=== PATIENT | male | born 1940 | race Caucasian/White ===

== ENCOUNTER 2019-03-25 07:49 | Inpatient (IN) | payer MEDICARE ==
[~2019-03-25] VITALS: Ht 175.3 cm; Wt 89.0 kg
[~2019-03-25 07:49] MED LIST: ASPIRIN EC81 MG PO; BACTRIM DS TAB1 EACH PO; PRAVACHOL40 MG PO; PREDNISONE10 MG PO; TUMS ULTRA400 MG PO; TYLENOL EXTRA500 MG PO; VANICREAM453 GM TOP
--- NOTE | 2019-03-25 11:45 | NUR ---
CALLED UTILITY LOCATOR TO VERIFY GASTROGRAFIN IS THE ORAL CONTRAST NEEDED FOR THE CT THAT HAS BEEN ORDERED BY . CONFIRMED BY UTILITY LOCATOR TO PLEASE GIVE ONE DOSE OF GASTROGRAFIN ORALLY AND THEN CALL BACK.
--- NOTE | 2019-03-25 12:00 | NUR ---
PATIENT ARRIVED FROM ED VIA STRETCHER. PATIENTS DAUGHTER AT BEDSIDE AWAITING WORK REALEASE NOTE FROM DR HILL. ASKED SOME QUESTIONS FROM DAUGHTER AND PATIENT. PATIENT ANSWERED YES TO SOME QUESTIONS THAT WERE NOT TRUE. PATIENTS DAUGHTER DOES NOT KNOW WHAT MEDICATIONS PATIENT IS ON OR IF HE HAS ANY ALLERGIES.
--- NOTE | 2019-03-25 12:15 | NUR ---
ON ADMIT PATIENT NOTED TO HAVE SOILED UNDERWEAR AND CHANGED IN THE ED. PATIENT NOTED TO HAVE VERY DRIED ON FECES UP AND DOWN HIS LEGS AND ALL OVER HIS FEET THAT DOES NOT WIPE OFF. PATIENT IS FORGETFUL AND CONFUSED. PATIENT DOES NOT FOLLOW COMANDS WELL. PATIENTS DAUGHTER STATES "I TRY TO CHECK IN ON HIM ONCE A DAY, HE LIVES IN THE APPARTMENT RIGHT NEXT DOOR AND I TRY TO BRING HIM BREAKFAST". 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 PER PATIENTS DAUGHTER, PATIENT SITS AT HOME IN JUST HIS UNDERWEAR IN HIS CHAIR ALL DAY AND DOES NOT AMBULATE BUT A COUPLE FEET TO DEFECATE IN A "BUCKET", WHICH HAS BEEN GOING ON FOR APPROX A MONTH OR TWO. PATIENT HAS A DOG THAT WAS FOUND TO BE EATING PATIENTS DRESSINGS FROM HIS CHEST WOUND THE PAST FEW WEEKS. PATIENT ATTEMPTS TO COOK AT TIMES AND FORGETS AND LEAVES THE STOVE ON OR WILL SET PLASTIC NEAR THE STOVE. ED STAFF REPORTED THEY WERE TOLD THE APPARTMENT HAS "MICE/RATS". PER REPORT PATIENT HASN'T SHOWERED IN AT LEAST 3-5 MONTHS. PATIENT HAD ANOTHER FALL APPROX 1-2 MONTHS AGO AND HAS TALKED ABOUT COMMITING SUICIDE. WHEN I ASKED PATIENT QUESTIONS IN [facility] TO THOUGHTS OF SUICIDE, PATIENT DENIES. WHEN ASKED IF PATIENT IS CONCERENED ABOUT HIS SAFETY AT HOME, PATIENT DENIED. CONTACTED [facility] AND TALKED WITH JONELLE. STAFF WILL FOLLOW-UP.
--- NOTE | 2019-03-25 12:21 | NUR ---
CALLED [facility] TO UPDATE ABOUT PATIENTS SITUATION D/T PATIENTS PRESENTATION UPON ARRIVAL TO THE CCU. PT IS COVERED IN FECES. PER DAUGHTER PATIENT IS UNABLE TO REALLY COOK/CARE FOR HIMSELF. DAUGHTER MAURICIO STATES "I TRY TO CHECK ON HIM EVERY DAY, BUT I HAVE MY OWN LIFE AND JOB, I CANT BE THERE ALL THE TIME". DAUGHTER STATES " HE USES A BUCKET TO DEFICATE BECAUSE HE CANT HARDLY WALK". HE HAS A RIGHT CHEST WOUND, STATES "ITS CANCER" AND WANTS NO TREATMENT FOR IT. JONELLE WITH [facility] STATES, WE WILL LOOK INTO IT FURTHER.
--- NOTE | 2019-03-25 14:00 | NUR ---
PATIENT HAD TWO LARGE BOWEL MOVEMENTS. ALL BEDDING CHANGED TWICE. WARM BLABKET PROVIDED. PICTURES TAKEN FOR CHART OF PATIENTS WOUNDS AND BILATERAL FEET. PATIENT DENIES ANY OTHER NEEDS AT THIS TIME. PATIENT DRANK ALL GASTROGRAFIN PER ORDER WITH NO ISSUES. WILL CONTINUE TO CLOSELY MONITOR.
--- NOTE | 2019-03-25 14:21 | NUR ---
PT RESTING I NBED ON HIS SIDE AT THIS TIME. PATIENT ANSWERES QUESTIONS, BUT APPEARS FORGETFUL/CONFUSED. ASKED PATIENT IF HE FEELS SAFE AT HOME AND PATIENT STATED "I HAVE EVERYTHING PAID FOR". PT IS ALERT TO SELF AND PLACE AT THIS TIME, BUT DISORIIETNED TO DATE, TIME, SITUATION, AND FOLLOWING DIRECTIONS. EDUCATED TO USE THE CALL LIGHT TO CALL AND PATIENT NOTED TRYING TO PUSH BUTTONS ON THE IV PUMP TO CALL STAFF. REORIENTED AGAIN AND EDUCATED TRAVEL NURSE LIGHT. WARM BLANKET PROVIDED. WILL CONTINUE TO CLOSELY MONITOR.
--- NOTE | 2019-03-25 15:15 | EKG ---
[facility] [address] [place], [place] [address] Signed Sinus rhythm with 1st degree AV block Low voltage QRS Nonspecific intraventricular conduction delay ST \T\ T wave abnormality, consider inferolateral ischemia Abnormal ECG No previous ECGs available Confirmed by CHIKIS HILL DO ([id number]) on 03/25/2019 3:15:29 PM Electronically Signed By: CHIKIS HILL DO 03/25/19 1515 PATIENT NAME: ARLIN RIOS Electrocardiogram DATE OF : 38 PHYSICIAN: CHIKIS HILL DO REPORT #: [id number] REPORT IS CONFIDENTIAL AND NOT TO BE RELEASED WITHOUT AUTHORIZATION
--- NOTE | 2019-03-25 15:42 | NUR ---
PATIENT BACK FROM CT WITH THIS RN. PT TOLERATED WELL. PATIENT DOES NOT FOLLOW DIRECTIONS WELL. PT REMOVED IV PRIOR TO CT SCAN. THIS RN PLACED NEW IV. PATIENT IS NOW RESTING IN BED AT THIS TIME. WILL CONTINUE TO CLOSELY MONITOR.
--- NOTE | 2019-03-25 16:57 | NUR ---
UPDATED MD HILL ABOUT INCREASED RR IN THE 30'S AT TIMES AND NOTED COARSNESS WITH BREATH SOUNDS. PATIENT ALSO NOTED TO HAVE SOME PUSS AT THE TIP OF HIS PENIS. NO FURTHER ISSUES AT THIS TIME. IVS SALINE LOCKED. WILL MONITOR OUTPUT. PT RESTING AT THIS TIME.
--- NOTE | 2019-03-25 18:31 | NUR ---
PATIENT HAD A LIQUID BM. ALL BEDDING CHANGED AND NEW GOWN IN PLACE. GAVE A QUICK BED BATH AND HAVE PATIENTS FEET SOAKING IN SHAVING CREAM TO HELP REMOVED OLD/DRIED ON FECES. ASSISTED PATIENT TO SIT UP AND EAT A CLEAR LIQUID TRAY. PATIENT HAD 2 BITS OF JELLO AND A DRINK OF APPLE JUICE AND DENIED THE REST OF HIS MEAL. MEDICATIONS ADMINISTERED WITH NO ISSUES. WILL CONTINUE TO CLOSELY MONITOR.
--- NOTE | 2019-03-25 19:40 | NUR ---
PATIENT REPORT RECEIVED FROM CCU RN. PT RESTING IN STRETCHER AT THIS TIME. DR GOLDSTEIN IN TO CHECK ON PATIENT. UPDATED ON PT CONDITION. ASSESSMENT COMPLETED DENIES DISCOMFORT OR PAIN. AUDIBLE COARSE LUNGS SOUNDS. RESIPRATORY EFFORT INCREASES WITH TALKING OR MOVEMENT.PM CARE, SKIN CARE, AND PRINCE CARE COMPLETED AT THIS TIME. CALL LIGHT WITHIN REACH. NO FURTHER NEEDS AT THIS TIME. BED ALARM ON FOR SAFETY.
--- NOTE | 2019-03-25 20:13 | NUR ---
PTS DAUGHTER IN TO VISIT AT THIS TIME.
--- NOTE | 2019-03-25 21:35 | NUR ---
PT BLOOD PRESSURES TRENDING DOWN. LAST PRESSURE 86/42 (54). URINE OUTPUT STILL MEETS CRITERIA. DR HILL NOTIFIED, ORDER RECIEVED FOR 1 L BOLUS OF LR AT 200 MLS/ HR.
--- NOTE | 2019-03-25 22:21 | NUR ---
DRESSING ON RIGHT CHEST SATURATED THROUGH DRESSING. CHANGED AT THIS TIME. PT CONTINUE APPEARS MORE DISORIENTED. VISIBLE FROM NURSES STATION. BED ALARM ON FOR PATIENT SAFETY.
--- NOTE | 2019-03-25 23:30 | NUR ---
FLUIDS STOPPED AT THIS TIME. PT RECIEVED A TOTAL OF 500 MLS.
--- NOTE | 2019-03-25 23:35 | NUR ---
PT HEART RATE UP TO 110. REQUIRING FREQUENT REORIENTATION TO TIME AND LOCATION. PT LUNGS ARE COARSE THROUGHOUT. OXYGEN SATURATIONS 93 PERCENT ON ROOM AIR.
--- NOTE | 2019-03-26 00:25 | NUR ---
DR HILL UPDATED ON PATIENT CONDITION.
--- NOTE | 2019-03-26 01:25 | NUR ---
RESPONDED TO PATIENT CALL LIGHT. PT HAD A BOWEL MOVEMENT, ALEXANDER CARE PERFORMED. REPOSITIONED IN BED. PT RESPONDS APPROPRIATELY TO QUESTIONS. APPEARS MORE ORIENTED TO SITUATION AND LOCATION. CALL LIGHT WITHIN REACH. BED ALARM ON FOR PATIENT SAFETY. NO FURTHER NEEDS AT THIS TIME.
--- NOTE | 2019-03-26 03:08 | NUR ---
ASSISTED PT WITH REPOSITIONING IN STRETCHER. NO FURTHER NEEDS AT THIS TIME.
--- NOTE | 2019-03-26 04:00 | NUR ---
IN TO COMPLETE ASSESSMENT. REPOSITIONED PATIENT IN THE BED, PT DRANK 6 0Z OF WATER AT THIS TIME. PT IS ORIENTED TO SELF AND LOCATION AT THIS TIME. LUNG SOUNDS HAVE IMPROVED THROUGHOUT. PT IS SATURATING 97 PERCENT ON ROOM AIR. CALL LIGHT WITHIN REACH. NO FURTHER REQUESTS.
--- NOTE | 2019-03-26 04:39 | NUR ---
PT HAD BOWEL MOVEMENT. ALEXANDER CARE AND LINEN CHANGE COMPLETED AT THIS TIME.
--- NOTE | 2019-03-26 06:15 | NUR ---
IN TO CHECK ON PATIENT, AWAKE IN BED AT THIS TIME. DENIES PAIN. ASSISTED WITH REPOSITIONING. CALL LIGHT WITHIN REACH.
--- NOTE | 2019-03-26 07:30 | NUR ---
PATIENT SHIFT REPORT RECIEVED FROM ENGRAVER SIGNATURE RN. PATIENT IS RESTING IN BED AT THIS TIME. PATIENT DENIES ANY NEEDS. CALL LIGHT IN REACH. CURTAIN OPEN TO ALLOW STAFF TO CLOSELY MONITOR.
--- NOTE | 2019-03-26 08:30 | NUR ---
PATIENT SHIFT ASSESSMENT COMPELTED. PATIENT RESTING IN BED. BREAKFAST ORDERED. PATIENT IS MORE ALERT TODAY AND IS ALERT TO NAME, PLACE, AND MONTH. PATIENT KNOWS HE IS IN THE HOSPITAL FOR A FALL, BUT DOES NOT REMEMBER FALLING. PRINCE REMAINS IN PLACE AND IS DRAINGING AMBERISH COLORED URINE. PATIENT DENIES PAIN, SOB, BREATH SOUNDS ARE A LITTLE COARSE AT TIMES BUT IMPROVES WITH COUGHING. OFFERED TO TURN THE TV ON, PATIENT DENIED. CURTAINS OPENED AND PATIENT WATCHING OUTSIDE. WILL CONTINUE TO CLOSELY MONITOR.
--- NOTE | 2019-03-26 09:55 | NUR ---
OT STAFF AND CASE MANAGEMENT IN TO TALK WITH STAFF THIS AM. PATIENT ANSWERING QUESTIONS. PATIENT SITTING UP IN BED AND EATING BREAKFAST ON HIS OWN WITH NO ISSUES. WILL CONTINUE TO CLOSELY MONITOR.
--- NOTE | 2019-03-26 11:05 | NUR ---
PATIENT HAD LOOSE BM. ALL BEDDING CHANGED AND QUICK BEDBATH GIVEN. WILL DO WASH CLOTH AND SOAP AND WATER BATH LATER. PHYSICAL THERAPY IN TO WORK WITH PATIENT. WILL CONTINUE TO CLOSELY MONITOR.
--- NOTE | 2019-03-26 11:45 | NUR ---
PATIENT WOUND REDRESSED WITH A FOAM ADHESIVE DRESSING. PATIENT STATES THERE IS NO PAIN AT THE SITE. NEW GOWN PLACE. LUNCH ORDERED. CALL LIGHT IN REACH.
--- NOTE | 2019-03-26 12:15 | NUR ---
THE PATIENT IS HOME BOUND AND HIS DAUGHTER IS THE ONE WHO WOULD BE PICKING UP AND DELIVERING HIS MEDICATIONS TO HIM. SHE HAS NOT DONE SO IN QUITE SOME TIME. PATIENT IS NOT ON ANY CURRENT MEDICATIONS AT THIS TIME.
--- NOTE | 2019-03-26 12:54 | NUR ---
PT IS DOING MUCH BETTER THIS AFTERNOON. PT IS ALERT TO MONTH, SELF, AND PLACE. PATIENT APPETITE HAS INCREASED AND IS ABLE TO FEED HIMSELF. PATIENT ASSESSMENT COMPLETED AND PATIENT DENIES PAIN AND SOB. VITALS ARE STABLE. PATIENT IS STARTING TO JOKE WITH STAFF MORE. MEDICATIONS ADMINISTERED PER ORDERS. MD IN TO SPEAK WITH PATIENT. PATIENT IS AGREEABLE TO THE POTENTIAL OF REHAB/ASSISTIVE LIVING FACILITY. PATIENT DENIES ANY OTHER NEEDS AT THIS TIME. WILL CONTINUE TO CLOSELY MONITOR.
--- NOTE | 2019-03-26 15:30 | NUR ---
PT IS DOING MUCH BETTER THIS AFTERNOON. PT VITAL SIGNS STABLE. PATINET IS MORE ALERT THE DAY CONTINUES. UPDATED MD OF PATIENTS CONDITION AND SOME NOTED FORGETFULLNESS, BUT OVERALL PATIENT IS IMPROVING. PRINCE IS NOTED TO HAVE AMBERISH COLORED URINE BUT HAS BEEN QUANTITY SUFFICIENT. PATIENT DENIES PAIN AND SOB. BED BATH COMPLETED. PATIENT TOLERATED WELL. PATIENTS DAUGHTER AT BEDSIDE AND UPDATED ON PLAN OF CARE. PATIENT ENCOURAGED TO DRINK ORAL FLUIDS. WILL CONTINUE TO CLOSELY MONITOR.
--- NOTE | 2019-03-26 16:54 | NUR ---
1630: PT ARRIVED TO MED SURG FROM CCU. REPORT RECEIVED FROM DEE ACOSTA. PT DENIES ANY PAIN OR PROBLEMS. PT NOT ORIENTED TO PERSON, PLACE OR TIME, BED ALARM TURNED ON. VSS AND PT APPEARS IN NO DISTRESS AT THIS TIME, SEE ASSESSMENT.
--- NOTE | 2019-03-26 17:37 | NUR ---
PATIENT RESTING IN BED. VITAL SIGNS AND I&O DONE. WATER GIVEN. CALL LIGHT WITHIN REACH. NO OTHER NEEDS AT THIS TIME
--- NOTE | 2019-03-26 18:15 | NUR ---
1844: Pt repositioned in bed. Manfred states he is comfortable and denies any needs.
--- NOTE | 2019-03-26 19:00 | NUR ---
IN ROOM FOR REPORT, PT IS RESTING WITH EYES CLOSED. RR IS EVEN AND NONLABORED HR LOW 100'S AT THIS TIME. CALL LIGHT IS CLOSE AND BED ALARM IS ON.
--- NOTE | 2019-03-26 21:10 | NUR ---
REPOSITIONED PT IN BED AFER HE USED THE BEDPAN. BM IS RUNNY AND YELLOW. PT DENIES PAIN AND SOB. HE IS NOT ORIENTED TO DATE/TIME. HE USED THE CALL LIGHT APPROPRIATELY TO USE THE BEDPAN. HE IS ON TELE #10 AND RUNNING A LITTLE TACHY IN THE LOW 100'S TO 105. DRESSING ON RIGHT CHEST HAS A SMALL AMOUNT OF SHADOWING BUT IS INTACT. PT DENIES NEEDS AT THIS TIME. CALL LIGHT IS CLOSE AND BED ALARM IS ON.
--- NOTE | 2019-03-26 21:12 | NUR ---
VITALS AND I&OS DONE AND CHARTED. WITH THE HELP OF KARLA RUCKER WE GOT HIM ON AND OFF THE BEDPAN. BEDSIDE TABLE AND CALL LIGHT IN REACH. FRESH ICE WATER GIVEN. PT NEEDS NOTHING MORE AT THIS TIME.
--- NOTE | 2019-03-26 21:39 | NUR ---
PT'S TELE LEADS CAME OFF, REPLACED, AND HE DENIES FURTHER NEEDS. CALL LIGHT IS WITHIN REACH.
--- NOTE | 2019-03-26 22:35 | NUR ---
PT IS RESTING WITH EYES CLOSED, RR IS EVEN AND NONLABORED. IV ABX ARE INFUSING WELL. CALL LIGHT IS CLOSE AND BED ALARM IS ON.
--- NOTE | 2019-03-26 23:46 | NUR ---
PT CALLED ASKING HOW TO TURN THE TV ON. ASSISTED HIM TO TURN IT ON AND REPOSTITIONED HIM IN THE BED. HE DENIES FURTHER NEEDS. CALL LIGHT IS CLOSE AND BED ALARM IS ON.
--- NOTE | 2019-03-27 00:01 | NUR ---
CCU CALLED BECAUSE PT'S HR JUMPED TO THE 130'S. THIS WAS SHORTLY AFTER PT WAS RESTLESS IN BED AND STATED HE COULD NOT SLEEP. BP WAS TAKEN AND IT WAS WNL. HR REMAINS IN LOW 100'S AND IS NOT SUSTAINED ABOVE 130. WILL CONTINUE TO MONITOR.
--- NOTE | 2019-03-27 00:52 | NUR ---
PT IS RESTING WITH EYES CLOSED, RR IS EVEN AND NONLABORED. HR IS 84. CALL LIGHT IS CLOSE AN BED ALARM IS ON.
--- NOTE | 2019-03-27 01:35 | NUR ---
PT'S BED ALARM SOUNDED HE ROLLED TO THE SIDE. HE DENIES NEEDS AT THIS TIME. CALL LIGHT IS CLOSE AND BED ALARM IS BACK ON.
--- NOTE | 2019-03-27 02:03 | NUR ---
ALLYVN DRESSING TO RIGHT CHEST HAD SOME PURULENT/SEROUS DRAINAGE THAT SOAKED THROUGH TO GOWN. NEW ALLYVN IN PLACE AND PT DENIES PAIN AT THIS TIME. HE IS RESTLESS AND STATES HE IS HAVING TROUBLE SLEEPING. PT IS ABLE TO ROLL HIMSLEF TO A COMFORTABLE POSITION, HE FAVORS SLEEPING ON HIS RIGHT SIDE. PRINCE IS DRAINING WELL. IV ABX ARE COMPLETE AT THIS TIME. PT DENIES NEEDS AND CALL LIGHT IS CLOSE. BED ALARM IS ON.
--- NOTE | 2019-03-27 04:30 | NUR ---
PT IS RESTING WITH EYES CLOSED, RESPIRATIONS ARE EVEN AND NONLABORED. HR IS 99 ON TELE. CALL LIGHT IS CLOSE AND BED ALARM IS ON.
--- NOTE | 2019-03-27 05:00 | NUR ---
PT SLEPT ON/OFF THROUGH THE NIGHT. HE DENIES PAIN. HE NEEDS HELP REPOSITIONING AT TIMES BUT IS ABLE TO ROLL AND SHIFT HIS OWN WEIGHT. IV IS SL BETWEEN CEFEPIME INFUSIONS. HE IS ON TELE #10 AND HR IS IRREGULAR RANGING FROM 70'S TO 130'S MAINLY STAYING AROUND 100. HE IS ON RA AND HAS A PRINCE CATH IN PLACE. HE IS ON A 2G SODIUM DIET AND ABLE TO FEED HIMSELF. HE IS CONFUSED AND THE BED ALARM IS ON. FRESH ALLEVYN DRESSING IS ON RT CHEST COVERING FUNGATING MASS. PT DOES NOT WALK MUCH AT BASELINE AND MAYBE A 2PA WITH RAEGAN.
--- NOTE | 2019-03-27 05:45 | NUR ---
IN ROOM TO ADMINISTER IV ABX. ASSISTED PT TO REPOSITION IN BED. HE IS ASKING WHEN HE CAN GET OUT OF BED. WE ASKED THAT HE WAIT UNTIL P.T. CAN ASSIST HIM TO SEE HOW WELL HE CAN AMBULATE. PT DENIES FURTHER NEEDS AT THIS TIME. CALL LIGHT IS WITHIN REACH.
--- NOTE | 2019-03-27 07:37 | NUR ---
PT SLEEPING SOUNDLY AT SHIFT CHANGE REPORT RECEIVED FROM COLE RN. PT APPEARS COMFORTABLE BREATHNG EVEN AND UNLABORED NO S/S OF DISCOMFOT. BED ALARM IS SET, FOELY DRAINING CLEAR YELLOW URINE.
--- NOTE | 2019-03-27 08:25 | NUR ---
PT AWAKENED FOR ASSESSMENT AND MORNING MEAL. AUDIBLE EX WHEEZE PT DENIES SOB. EATS BITES ONLY, REFUSES OFFER OF OTHER FOOD ITEMS. H20 FRESHENED AND AT BED SIDE. BED ALARM IS SET. PT ALERT AND COOPERATIVE DENIES DISCOMFORTS OR NEEDS OF. CALL LIGHT IN HAND AGREES TO CALL FOR NEEDS
--- NOTE | 2019-03-27 08:31 | NUR ---
DR HILL NOTIFIED PT HAS AUDIBLE EX WZ, RESP 28, BREATHING LABORED.
--- NOTE | 2019-03-27 09:04 | NUR ---
SATS 88% ON FINGER MOINITOR IN ROOM, RETESTED USING PULSE OX SATS AT 95%. DR HILL IN TO CHECK ON PT, ORDERS RECEIVED. SURESH SCHNEIDER'D WELL TOLERATED
--- NOTE | 2019-03-27 10:12 | NUR ---
PT UP WITH P/T TO AMBULATE. BM SMEAR ON UNDERGARMENT AND BED, ASSISTED TO DO ALEXANDER CARE, LINEN CHANGE, AND UNDERGARMENT PUT IN PLACE. PT APPEARS FAIRLY STRONG GETTING UP AND AMBULATING, WELL TOLERATED.
--- NOTE | 2019-03-27 10:23 | NUR ---
PT AMBULATES 84 FT RETURNS TO CHAIR SATS 95% WELL TOLERATED. NO LONGER WHEEZING AT THIS TIME RESP RATE 24.
--- NOTE | 2019-03-27 11:04 | NUR ---
PT SITTING UP IN RECLINER, ASKS IF HE NEEDS TO CALL BEFORE GETTING UP. PT ENCOURAGED TO CALL FOR SBA FOR NOW, CALL LIGHT IN REACH ALONG WITH H20 AND OTHER ITEMS.
--- NOTE | 2019-03-27 13:31 | NUR ---
PT USES CALL LIGHT APPROPRIATELY REPORTS NEED TO TOILET. ABLE TO VOID WITHOUT DIFFICULTY (AFTER PRINCE REMOVAL) HAS A SMALL BM. PT RETURNS TO RESTING IN BED, FROM CHAIR. REFUSES LUNCH PREFERS TO NAP, AGREES TO MEAL LATER
--- NOTE | 2019-03-27 15:35 | NUR ---
PT TO CHAIR AGAIN, DAUGHTER IS PRESENT IN THE ROOM AT THIS TIME. PT DENIES PAIN, DISCOMFORT, OR NEEDS OF. CALL LIGHT IN REACH
--- NOTE | 2019-03-27 18:19 | NUR ---
PT HAS CONTINUED TO USE HIS CALL LIGHT APPROPRIATELY THIS SHIFT CALLING TO TOILET AND TO MOVE FROM CHAIR TO BED. AMBULATES TO THE BATHROOM WITH GREAT EFFORT. UP TO THE CHAIR FOR THE EVENING MEAL EATS 100% RETURNS TO RESTING IN BED. TELE DC'D PER DR BROWNLEE
--- NOTE | 2019-03-27 19:00 | NUR ---
IN ROOM FOR REPORT, PT IS RESTING WITH EYES CLOSED. RR IS EVEN AND NONLABORED. CALL LIGHT IS WITHIN REACH.
--- NOTE | 2019-03-27 22:16 | NUR ---
ON ROOM TO ASSESS PT AND ADMINISTER MEDICATION. PT DENIES PAIN AND SOB AT THIS TIME. HE IS TRYING TO SLEEP AND GIVING MINIMAL ANSWERS TO QUESTIONS. DRESSING IN PLACE ON R CHEST. IV FLUSHES WELL AND IV ABX ARE NOW INFUSING. PT DENIES NEEDS AT THIS TIME. CALL LIGHT IS CLOSE.
--- NOTE | 2019-03-27 22:58 | NUR ---
HELPED PT TO THE BATHROOM AND BACK TO BED WITH HIS FWW. BEDSIDE TABLE AND CALL LIGHT IN REACH. PT NEEDS NOTHING AT THIS TIME.
--- NOTE | 2019-03-28 00:16 | NUR ---
PT IS RESTING WITH EYES CLOSED, RESPIRATIONS ARE EVEN AND NONLABORED. CALL LIGHT IS WITHIN REACH.
--- NOTE | 2019-03-28 02:00 | NUR ---
PT IS RESTING WITH EYES CLOSED, RESPIRATIONS ARE EVEN AND NONLABORED. CALL LIGHT IS WITHIN REACH.
--- NOTE | 2019-03-28 04:10 | NUR ---
PT WAS ASSISTED TO THE RESTROOM AND TO THE CHAIR BY ELLIOTT KING. HIS CHEST DRESSING WAS LEAKING OUT OF THE BOTTOM PURULENT DRAINAGE. ABD PAD TAPED OVER WOUND TO CONTAIN DRAINAGE. PT DENIES PAIN AT THIS TIME AND FURTHER NEEDS. CALL LIGHT IS WITHIN REACH.
--- NOTE | 2019-03-28 05:40 | NUR ---
NEW IV STARTED. PT DENIES NEEDS AT THIS TIME. IV ABX INFUSING. CALL LIGHT IS CLOSE.
--- NOTE | 2019-03-28 06:32 | NUR ---
PT IS ON A 2G SODIUM DIET. HE HAS A NEW IV IN HIS RIGHT WRIST WHICH IS SL BETWEEN CEFEPIME INFUSIONS. HE IS 1PA WITH FWW. HE HAS A FUNGATING MASS ON HIS RIGHT CHEST COVERED WITH ABD PAD. CASE MANAGEMENT IS WORKING ON PLACEMENT.
--- NOTE | 2019-03-28 07:05 | NUR ---
RECIEVED BEDSIDE REPORT FROM KARLA RUCKER. PT SITTING UP IN RECLINER. PERSONAL SUPPLIES IN REACH.
--- NOTE | 2019-03-28 10:28 | NUR ---
PT TOOK SHOWER WITH THIS RN ASSISTANCE. PT DECLINED LINNEN CHANGE AT THIS TIME, WENT TO BED DIRECTLY AFTER SHOWER. DRESSING TO RIGHT CHEST WOUND CHANGED DUE TO OLD DRESSING GETTING WET IN SHOWER. MINIMAL BLOODY DRAINAGE NOTED. ALLYVEN DRESSING PLACED.
--- NOTE | 2019-03-28 10:55 | NUR ---
REPORT RECEIVED FROM KARLA SAMANO. THIS RN ASSUMING CARE OF PT. PT RESTING IN BED. BED RAILS UP. CALL LIGHT WITHIN REACH.
--- NOTE | 2019-03-28 11:17 | NUR ---
THIS RN TO BEDSIDE FOR ROUNDS WITH MD. PT AWAKENS TO VOICE AND TOUCH. ASSESSMENT DONE. LUNG SOUNDS CLEAR. BOWEL TONES NOTED. PT DENIES PAIN AND NAUSEA. PT DRIFTS BACK TO SLEEP. NO ADDITIONAL REQUESTS OR COMPLAINTS AT THIS TIME. CALL LIGHT WITHIN REACH. CURTAIN OPEN FOR EASY VIEWING FROM NURSES STATION.
--- NOTE | 2019-03-28 12:23 | NUR ---
PT INCONTINENT OF URINE. PT AMBULATED TO BATHROOM WITH FWW WITH STANDBY ASSIST. THIS RN ASSISTED PT IN CHANGING INTO FRESH ATTENDS. PT THEN TO RECLINER IN ROOM TO EAT LUNCH. BED LINNENS CHANGED.
--- NOTE | 2019-03-28 14:14 | NUR ---
THIS RN TO ROOM TO CHECK ON PT. PT RESTING ON RIGHT SIDE. PT AWAKENS TO VOICE. MEDICATION GIVEN (SEE MAR). PT DENIES PAIN AND NAUSEA. PT IRRITABLE STATING "WHY DO I WANT PAIN WHEN I HAVE YOU IN HERE ALL THE TIME." PT STATES HE WANTS TO GO BACK TO SLEEP. BED RAILS UP. CALL LIGHT WITHIN REACH.
--- NOTE | 2019-03-28 15:22 | NUR ---
SBA, FWW UP TO RESTROOM. PT VOIDS 200ML WITHOUT ISSUE. SBA, FWW BACK TO BED. PT SOB WITH AMBULATION BACK TO BED. PT TRANSFERS SELF INTO BED WITH MODERATE DIFFICULTY. PT VERY SLOW WITH AMBULATION BUT ABLE TO AMBULATE. PT RESTING ON RIGHT SIDE. WATER REFILLED. NO REQUESTS OR COMPLAINTS AT THIS TIME.
--- NOTE | 2019-03-28 17:35 | NUR ---
DINNER ARRIVED. THIS RN TO ROOM. PT DECLINES DINNER. PT ENCOURAGED TO GET UP TO CHAIR OR EDGE OF BED, PT DECLINES. VITALS TAKEN. PT CONTINUES RESTING ON LEFT SIDE. NO REQUESTS OR COMPLAINS. CALL LIGHT WITHIN REACH. BED RAILS UP.
--- NOTE | 2019-03-28 17:38 | NUR ---
PTS DAUGHTER, MAURICIO, ARRIVED FOR VISIT. MAURICIO UPDATED ON PLAN OF CARE AND PT CONDITION. MAURICIO VERBALIZES UNDERSTANDING AND STATES HER QUESTIONS HAVE BEEN ANSWERED.
--- NOTE | 2019-03-28 17:42 | NUR ---
PT HERE FOR SEPSIS. 1PA WITH FWW THIS SHIFT. PT ABLE TO AMBULATE SLOWLY TO BATHROOM AND CHAIR. PT TOLEARTING 2G SODIUM DIET WITH MINIMAL APPITITE. NO BOWEL MOVEMENT THIS SHIFT, SENNA STARTED, GIVEN X1 THIS SHIFT. DRESSIN TO RIGHT CHEST WOUND CHANGED THIS SHIFT PER MD, COMPLEX WOUND ASSESSMENT DONE. NECROTIC TISSUE, AND HARD EDGES NOTED ON [id number] WOUND. PT UP FOR SHOUER TODAY AND UP X2 TO CHAIR. PT RELUCTANT TO PARTICIPATE IN ACTIVIEIS OR GET UP TO CHAIR, DECLINED DINNER. PT/OT IN VOLVED. PTS DAUGHTER AT BEDSIDE IN EVENING. ANTICIPATING CASE MANAGEMENT CONSULT AND PLACEMENT DISCUSSION TOMORROW. PT USES CALL LIGHT INCONSISTANTLY.
--- NOTE | 2019-03-28 17:45 | NUR ---
PT HERE FOR SEPSIS. 1PA WITH FWW THIS SHIFT. PT ABLE TO AMBULATE SLOWLY TO BATHROOM AND CHAIR. PT TOLEARTING 2G SODIUM DIET WITH MINIMAL APPITITE. NO BOWEL MOVEMENT THIS SHIFT, SENNA STARTED, GIVEN X1 THIS SHIFT. DRESSIN TO RIGHT CHEST WOUND CHANGED THIS SHIFT PER MD, COMPLEX WOUND ASSESSMENT DONE. NECROTIC TISSUE, AND HARD EDGES NOTED ON [id number] WOUND. PT UP FOR SHOUER TODAY AND UP X2 TO CHAIR. PT RELUCTANT TO PARTICIPATE IN ACTIVIEIS OR GET UP TO CHAIR, DECLINED DINNER. PT/OT IN VOLVED. PTS DAUGHTER AT BEDSIDE IN EVENING. ANTICIPATING CASE MANAGEMENT CONSULT AND PLACEMENT DISCUSSION TOMORROW. PT USES CALL LIGHT INCONSISTANTLY.
--- NOTE | 2019-03-28 17:55 | NUR ---
NEW DINNER ORDER PLACED PER PTS DAUGHTER'S REQUEST. PTS DAUGHTER STATES PT WOULD LIKE COTTAGE CHEESE AND CHICKEN NOODLE SOUP. DIETARY CALLED AND PORTIONS WORKED OUT TO STAY WITHIN 2G SODIUM RESTRICION.
--- NOTE | 2019-03-28 18:13 | NUR ---
NEW DINNER ARRIVED. PT ENCOURAGED TO GET UP FOR DINNER. PT DECLINES. PTS DAUGHTER STATES "I ATE HIS DINNER BECAUSE HE WASN'T GOING TO EAT IT." PT RESTING ON LEFT SIDE. PT DENIES REQUESTS OR COMPLAINTS AT THIS TIME. BED RAILS UP. CALL LIGHT WITHIN REACH.
--- NOTE | 2019-03-28 19:10 | NUR ---
RECEIVED REPORT FROM DAY SHIFT RN. PATIENT IS RESTING IN BED WITH EYES CLOSED, RR 17. CALL LIGHT IN REACH.
--- NOTE | 2019-03-28 21:16 | NUR ---
PATIENT ASSESEMENT COMPLETED. PATIENTS ATTEND AND BEDDING SOAKED. BEDDING CHANGED AND ATTEND CHANGED. ALEXANDER CARE COMPLETED. DESITIN APPLIET TO PATIENTS COCYX AREA. PATIENT WAS ABLE TO ASSIST STAFF TO ROLL FROM SIDE TO SIDE SO THAT HE COULD BED CHANGED. PATIENT DENIES ANY PAIN. PATIENTS EVENING MEDICATIONS GIVEN PER ORDER. ALLEVYN ON RIGHT UPPER CHEST CHANGED IT WAS SOAKED WITH DRAINAGE. PATIENTS GOWN ALSO CHANGED. PATIENTS INTAKE AND OUTPUT RECORDED. NO NEEDS NOTED. CALL LIGHT IN REACH. BED ALARM ON FOR SAFETY.
--- NOTE | 2019-03-28 23:31 | NUR ---
PATIENT REPOSITIONED IN BED. PATIENT DENIES ANY FURTHER NEEDS. CALL LIGHT IN REACH AND ALARM IS ON FOR SAFETY.
--- NOTE | 2019-03-29 00:25 | NUR ---
PATIENT IS RESTING IN BED WQITH EYES CLOSED, RR 17. CALL LIGHT IN REACH AND BED ALARM ON FOR SAFETY.
--- NOTE | 2019-03-29 01:25 | NUR ---
PATIENT IS RESTING IN BED WITH EYES CLOSED, RR 17. CALL LIGHT IN REACH AND BED ALARM ON FOR SAFETY.
--- NOTE | 2019-03-29 02:40 | NUR ---
KARLA Downey and myself went to check on patient, he had wet the bed. A complete bed change was done along with new briefs. PT requested a fresh cup of ice water and did not need anything further at this time.
--- NOTE | 2019-03-29 02:45 | NUR ---
PATIENTS ATTEND AND BEDDING IS SOAKED WITH URINE. PATIENTS BEDDING AND ATTEND CHANGED. ALEXANDER CARE COMPLETED. PATIENTS ALLEVYN ON RIGHT UPPER CHEST IS COMING OFF AND DRAINGE NOTED. ALLEVYN CHANGED. PATIENT PROVIDED WITH FRESH ICE WATER. NO FURTHER NEEDS NOTED. CALL LIGHT IN REACH AND BED ALARM ON FOR SAFETY.
--- NOTE | 2019-03-29 04:10 | NUR ---
PATIENT IS RESTING IN BED WITH EYES CLOSED, RR 16. CALL LIGHT IN REACH.
--- NOTE | 2019-03-29 04:40 | NUR ---
PATIENT RESTED WELL THROUGHOUT THE SHIFT. PATIENT IS ON A 2GM NA LIMIT DIET, TOLERATING WELL, AND NO NAUSEA NOTED. PATIENT IS A 1PA W/FWW. PATIENT IS WORKING WITH PT/OT. PATIENT IS SL AND IV FLUSHES WELL. PATEITN IS ON RA. PATIENT HAS WOUND ON RIGH THONG CHEST AND IT IS COVERED WITH AN ALEVYN AND THE ALYVN IS CHANGED PRN. PATIENT GETS SOB W/ACTIVITY. PATIENT IS FORGETFUL AT TIMES, REORIENT NEEDED. PATIENT USES CALL LIGHT APPROPRIATELY.
--- NOTE | 2019-03-29 05:56 | NUR ---
PATIENTS VITLAS TAKEN AND RECORDED. PATIENTS ATTEND CHANGED PATIENT WAS INCONTINENT OF URINE. ALEXANDER CARE COMPLETED. PATIENT REPOSITIONED IN BED. PATIENT DENIES ANY PAIN OR SOB. PATIENT PROVIDED WITH COFFEE PER REQUEST. PATIENT DENIES ANY FURTHER NEEDS. CALL LIGHT IN REACH AND BED ALARM ON FOR SAFETY.
--- NOTE | 2019-03-29 05:58 | NUR ---
VS and I&Os were complete. Patient was changed with the assistance of KARLA Downey and myself. Patient requested coffee and water. Nothing further was needed at this time.
--- NOTE | 2019-03-29 07:22 | NUR ---
Pt sleeping in bed at this time, resp even and non labored. Pt has no s/s of distress noted. Personal supplies and call light within reach.
[2019-03-29] MEDS ORDERED: TYLENOL325 MG PO (08:51)
[2019-03-29] MEDS ORDERED: SULFAMETHOXAZO1 EAC1 PO (08:51)
[2019-03-29] MEDS ORDERED: SENNA-TIME S T1 EACH PO (08:52)
[2019-03-29] MEDS ORDERED: DESITIN57 GM TOP (08:54)
--- NOTE | 2019-03-29 09:47 | NUR ---
PATIENT IN BED RESTING. CALL LIGHT IN REACH. NO FURTHER NEEDS AT THIS TIME. PATIENT REFUSED SHOWER AT THIS TIME, WILL ASK AGAIN LATER.
--- NOTE | 2019-03-29 10:06 | NUR ---
CALLED AND SPOKE WITH SANGITA AT [facility], FAXED CHART NOTES TO [facility] INCLUDING FACE SHEET, ER NOTES AND SUMMARY, H AND P, PROG NOTES, PT AND OT EVAL AND NOTES. RECEIVED FAX CONFIRMATION.
--- NOTE | 2019-03-29 10:10 | NUR ---
ATTEMPTED TO CALL PTS DAUGHTER MAURICIO @ [phone], NO ANSWER SO I LEFT A MESSAGE FOR HER TO CALL ME BACK AT [phone].
--- NOTE | 2019-03-29 11:00 | NUR ---
TRIED TO MAKE APPT. FOR [facility] AND HIS OFFICE SAID THAT THEY WILL SET IT UP WITH [facility] HE IS [facility] PROVIDER.
--- NOTE | 2019-03-29 11:34 | NUR ---
PT DAUGHTER CALLED BACK AND SHE SAID [facility] THERE. WE DID TALK ABOUT THEM APPLYING FOR ASSISTANCE FOR CAREGIVERS THROUGH [employer]-BROUGHT UP BY MAURICIO (DAUGHTER). SHE SAID SOON THEY BRING UP THINGS ABOUT [facility] OR [employer] SHE HANGS UP JUAN THEY GOT NO BUSINESS KNOWING THAT STUFF THEY DON'T NEED TO KNOW THAT. I TRIED TO EXPLAIN [facility] NEEDS AND MAURICIO STATED SHE UNDERSTOOD A LITTLE AND WILL TRY AGAIN WITH THEM JUAN SHE STATES HE NEEDS HELP.
--- NOTE | 2019-03-29 12:25 | NUR ---
Pt resting in bed at this time, resp even and non labored. Pt denies needs at this time. Personal supplies and call light within reach. No needs at this time.
--- NOTE | 2019-03-29 13:57 | NUR ---
PATIENT IN BED RESTING WITH EYES CLOSED. ALEXANDER CARE DONE. NEW ATTENDS. CALL LIGHT IN REACH. NO FURTHER NEEDS AT THIS TIME.
--- NOTE | 2019-03-29 15:03 | NUR ---
REPORT RECIEVED FROM KARLA BELTRE. THIS RN ASSUMING CARE OF PT. PT RESTING IN BED ON LEFT SIDE. BED RAILS UP. CALL LIGHT WITHIN REACH.
--- NOTE | 2019-03-29 15:22 | NUR ---
REPORT CALLED TO KARLA WELLER AT [facility] WHO STATES HER QUESTIONS HAVE BEEN ANSWERED.
--- NOTE | 2019-03-29 15:40 | NUR ---
PT READY FOR DISCHRAGE TO [facility] ON THEIR WAY. 1PA, FWW UP TO RESTROOM. SMALL BM NOTED. ALEXANDER CARE DONE. FRESH DEPENDS IN PLACE. SCRUB PANTS IN PLACE. PT DOES NOT WANT A SHIRT, PT REMAINS IN GOWN FOR TRANSFER. VITALS TAKEN. PIV DC'D PER PROTOCOL. GAUZE AND COBAN APPLIED. FRESH DRESSING TO CHEST WOUND. OLD DRESSING SHOWS YELLOW AND SERIOUSANGUINOUS DRAINAGE. 1PA, FWW TRANSFER TO WHEELCHAIR. PT UPDATED ON PLAN OF CARE AND TRANSFER. PT VERBALIZES UNDERSTANDING. PT WHEELED FROM UNIT BY GIDEON SHAY AND MIKALA JOHNSON RN. TRANSFER PACKET GIVEN TO DONTE VEE.
== END 2019-03-29 15:40 | DRG 871 ==
LOC: ED 07:49 → CCU 10:51 → MS 03-26 16:32
PROVIDERS: ADMIT Student in an Organized Health Care Education/Training Program
DX: A41.51 Sepsis due to Escherichia coli [E. coli] (principal); K72.00 Acute and subacute hepatic failure without coma; G93.41 Metabolic encephalopathy; N17.9 Acute kidney failure, unspecified; E87.2 Acidosis; R65.20 Severe sepsis without septic shock; C76.1 Malignant neoplasm of thorax; E87.6 Hypokalemia; E78.5 Hyperlipidemia, unspecified; J44.9 Chronic obstructive pulmonary disease, unspecified; I35.0 Nonrheumatic aortic (valve) stenosis; K59.00 Constipation, unspecified; G30.9 Alzheimer's disease, unspecified; F02.80 Dementia in other diseases classified elsewhere, unspecified severity, without behavioral disturbance, psychotic disturbance, mood disturbance, and anxiety; Z66 Do not resuscitate; Z79.82 Long term (current) use of aspirin; Z79.899 Other long term (current) drug therapy; Z88.8 Allergy status to other drugs, medicaments and biological substances
CPT/HCPCS: 36415; 51702; 70450; 71045; 71260; 74177; 80048; 80053; 80076; 81001; 82550; 83605; 83735; 83880; 84100; 84484; 85025; 87040; 87077; 87088; 87186; 93005; 93010; 97110; 97116; 97162; 97165; 97535; 99285-25; J0692; J1650; J3370; J3475; J3480; J7030; J7060; J7120

== ENCOUNTER 2019-09-03 07:55 | Inpatient (IN) | payer MEDICARE ==
[~2019-09-03] VITALS: Ht 175.3 cm; Wt 89.8 kg
[~2019-09-03 07:55] MED LIST changes: +DESITIN57 GM TOP; +SENNA-TIME S T1 EACH PO; +SULFAMETHOXAZO1 EAC1 PO; +TYLENOL325 MG PO
--- NOTE | 2019-09-03 09:31 | NUR ---
BLOOD ADMINISTRATION STARTED, DOUBLE CHECKED WITH NARCISO RN. PATIENT APPEARS TO BE TOLERATING WELL. NO NEEDS AT THIS TIME. NURSE AT BEDSIDE.
--- NOTE | 2019-09-03 11:08 | NUR ---
BLOOD INFUSING, TOLERATING WELL. PATIENT COMPLAINTS OF BACK PAIN. REPOSITIONED PATIENT TO SIDE OF BED SITTING UP. PROVIDED LEMON SWABS. MASSGAGED PATIENT BACK, AND PROVIDED WARM BLANKET. PATIENT REPORTED BACK PAIN IMPROVED.
--- NOTE | 2019-09-03 12:00 | NUR ---
1155 2ND UNIT PRBCS DOUBLE CHECKED WITH 2 RNS. THEN HUNG PER PUMP AT 120MLS/HR. LINE WAS CLEARED WITH SALINE FIRST. PT DENIES ANY S/S OF REACTION. AGAIN ENC TO REPORT ANY S/S OF REACTION. STATES HE UNDERSTANDS.
[2019-09-03] MEDS ORDERED: IBUPROFEN200 MG PO (12:05)
--- NOTE | 2019-09-03 12:14 | NUR ---
DENIES ANY S/S OF REACTION. RATE INCREASED TO 150MLS/HR.
[2019-09-03] MEDS ORDERED: SENNO8.6 MG PO (12:16)
[2019-09-03] MEDS ORDERED: FLUOXETINE HCL20 M1 PO (12:17)
--- NOTE | 2019-09-03 14:00 | NUR ---
PATIENT RESTING BACK IN RECLINER. BRIEF DRY. PROVIDED PATIENT WITH LEMON SWABS. CALL LIGHT WITHIN REACH. LIGHTS DIM.
--- NOTE | 2019-09-03 15:00 | NUR ---
PATIENT TRANSFERED BACK TO BED FROM RECLINER. STARTED SECOND IV LINE TO LEFT WRIST, LR TKO. BLOOD ADMINISTRATION DONE AT 1445, VS STABLE. DR. BARCENAS TO ROOM SITE MARKED. SOPHIE LUNA IN ROOM DISCUSSING POC.
--- NOTE | 2019-09-03 17:08 | NUR ---
BRIEF SATURATED WITH URINE. CHANGED BEDDING. NEW ATTEND ON. PATIENT STOOD STEADY AT EDGE OF BED WITH WALKER. DAUGHTER AT BEDSIDE.
--- NOTE | 2019-09-03 17:49 | NUR ---
TOOK BELONGINGS TO MS RM 113 AND PROVIDED AMAURY CHARGE NURSE REPORT ON PATIENT AND BACKGROUND. DAUGHTER LEFT NUMBER AT NURSES STATION AND VERBALIZED SHE WAS GOING HOME FOR SOME REST.
--- NOTE | 2019-09-03 20:18 | NUR ---
09/03/19 2018 Corrine Davey 2006 PT ARRIVED TO PACU, ON 6L VIA MASK. RESP EVEN AND UNLABORED AND PT COUGHING OFF AND ON. PT REACTIVE TO TACTILE STIMULI. 2014 PT WOKE TO TACTILE STIMULI AND EYES SLIGHTLY OPEN. PT DOES NOT RESPOND WHEN ASKED ABOUT PAIN. PT FALLS BACK TO SLEEP AND SNORING NOTED. O2 REMOVED AND RN ENCOURAGES DEEP BREATHING.
--- NOTE | 2019-09-03 20:48 | NUR ---
2039 - arrived top room 113 from day surgery at this time room air, ivfi nfusing, scds in place. CPOX in place
--- NOTE | 2019-09-03 23:07 | NUR ---
PATIENT IS RESTING QUIETLY WITH EYES CLOSED AT THIS TIME, WAS ABLE TO TAKE ICE CHIPS, THEN SOME WATER WITH HIS PO TYLENOL, HE HAS BEEN NON VERBAL EXCEPT FOR SAYING,"COLD," WHEN HE ATE THE ICE, AND, "MAGIC," AFTER TAKING THE TYLENOL. IV'S ARE PATENT. LR RUNNING AT 85MLS/HR. VS HAVE BEEN STABLE. PATIENT NODDED UNDERSTANDING OF USING CALL LIGHT, BUT SAID NOTHING VERBALLY. CALL LIGHT IN REACH AND BED ALARM ON.
--- NOTE | 2019-09-04 01:30 | NUR ---
PATIENT WAS GETTING OUT OF BED, HURTING, WAS INCONTINENT URINE WITH A SMEAR OF STOOL. PATIENT CLEANED UP, AND GIVEN 6MG IV MORPHINE, DRAINAGE SPOTS MARKED ON DRESSINGS. KENNY LINES STRIPPED AND DRAINED. PATIENT RESTING QUIETLY NOW. CALL LIGHT IN REACH AND BED ALARM ON.
--- NOTE | 2019-09-04 03:30 | NUR ---
PATIENT RESTING QUIETLY ON THE LEFT SIDE, SATS IN THE 90'S ON ROOM AIR. EYES CLOSED, CALL LIGHT IN REACH.
--- NOTE | 2019-09-04 05:40 | NUR ---
PATIENT HAS NOT HAD A SECOND VOID YET, PAIN IS UNDER CONTROL, PATIENT HAS BEEN DRINKING WATER RT CHEST SURGICAL SITE REINFORCED WITH ABD AND OPSITE, MID-LINE KENNY#2 ALSO REINFORCED WITH SPONGES, ABD, AND OPSITE. PATIENT RESTING QUIETLY NOW.
--- NOTE | 2019-09-04 06:43 | NUR ---
PATIENT STILL HAS NOT VOIDED A SECOND TIME AND IT HAS BEEN ALMOST 6HRS, BLADDER SCAN SHOWED 185MLS ON THE BEST SCAN. CALLED AND LEFT A MESSAGE FOR TO CALL ME BACK REGARDING THIS MATTER AND TO INFORM HIM OF THE THE REINFORCED DRESSINGS AND INCREASED OUTPUT FROM KENNY'S.
--- NOTE | 2019-09-04 07:33 | NUR ---
0655: REPORT RECIEVED FROM NANDA ACOSTA. PT SLEEPING, CALL HARPER WITHIN REACH AND BED ALARM IS ON.
--- NOTE | 2019-09-04 09:04 | NUR ---
PT HAS NOT VOIDED FOR SOME TIME NOW. PRIOR SHIFT CALLED AND NOTIFIED THE MD. PT GIVEN SOME WATER WHICH HE DID DRINK. IV FLUID CONTINUES ORDERED. PT DENIES THE NEED TO VOID. WILL CONTINUE TO MONITOR. PT DROWSY, AWAKES TO VOICE AND DENIES PAIN. DRESSINGS REMAIN INTACT AND KENNY DRAINS WERE EMPTIED. PT NOW GETTING UP TO THE CHAIR WITH ASSIST TO BE SITTING UP FOR HIS BREAKFAST. PT ORIENTED TO PERSON AND PLACE AND TIME BUT CONTINUES TO GIVE ON WORD ANSWERS. CHAIR ALARM WAS PLACED.
--- NOTE | 2019-09-04 10:53 | NUR ---
KENNY drains placed to continuous medium wall suction as ordered. Dr Rock aware of poor urine output, new orders recieved.
--- NOTE | 2019-09-04 10:57 | OR ---
[facility] [address], [place] [address] Signed DATE OF OPERATION: 09/03/2019 SURGEON: Sophie Barcenas MD PREOPERATIVE DIAGNOSES: 1. 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 Persistent bleeding, subsequent anemia, s/p transfusion. 2. Limited abduction of right arm. POSTOPERATIVE DIAGNOSES: 1. 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 2. Persistent bleeding, anemia, sp transfusion 2 u prbc 2. Limited abduction of right arm. 3. Clinically positive lymph nodes. PROCEDURES PERFORMED: 1. Injection of methylene blue dye for sentinel lymph node identification. 2. Radical mastectomy with level III axillary dissection. ANESTHESIA: General endotracheal; Nila Louis CRNA. INDICATIONS: This 78-year-old white man is a patient of Dr. Radha Acosta. He longstanding has had a subareolar breast mass, for which he initially refused further evaluation. The lesion has increased in size and has now become a fungating, bleeding, foul-smelling lesion. A CT scan was performed in March, confirming the lesion to infiltrate into the pectoralis muscle. He does not have arm edema. The patient had resisted any evaluation or treatment for this problem until recently when persistent bleeding most of the day has become intolerable for him and most importantly for his daughter, who is his overall product introduction manager. Evaluation in the office showed the lesion highly consistent with a primary breast cancer and a biopsy was performed under local anesthesia in my office, which confirmed infiltrating ductal breast carcinoma. I have recommended mastectomy, most likely a radical mastectomy to include all or most of the pectoralis muscle given the findings on CT scan. Electronically Signed By: SOPHIE BARCENAS MD 09/04/19 1057 PATIENT NAME: ARLIN RIOS OPERATIVE REPORT DATE OF : 38 REPORT #: [id number] PHYSICIAN: SOPHIE BARCENAS MD PCP: RADHA ACOSTA MD REPORT IS CONFIDENTIAL AND NOT TO BE RELEASED WITHOUT AUTHORIZATION [facility] [address], [place] [address] Signed The patient has a right parasternal border significant heart murmur, which is likely aortic stenosis in origin, which he refuses to more fully evaluate. He was found on preoperative lab studies to have a hematocrit of only 24 based on persistent bleeding of this lesion. On that basis, 2 units of packed red cells were transfused earlier today. His hematocrit preoperatively is 33. His preoperative chest x-ray is normal. He shows no sign of liver enzyme elevation. Clinical examination shows limited abduction of his right arm related to his shoulder rather than the breast lesion itself. There is no clinically positive axillary lymph node. He is admitted to undergo radical mastectomy. He understands the risks of bleeding, infection, need for additional treatment, and other unforeseen complications. FINDINGS: The breast tumor was rather large, probably 5 cm or larger. It absolutely infiltrated into the pectoralis muscle, but not through that into the underlying ribs. Radical mastectomy was performed. Methylene blue dye was injected for sentinel lymph node identification, but there was essentially no uptake into the axilla. There were multiple small, hard lymph nodes in the axilla, clinically consistent with metastatic disease and a level III axillary dissection was undertaken. The right axillary vein was well identified and preserved as was the thoracodorsal neurovascular bundle and long thoracic nerve neurovascular bundle. With elevation of flap superiorly and inferiorly (more extensive than usual), primary closure of the wound could be undertaken without need for more elaborate closure (skin graft or rotational flap). DESCRIPTION OF PROCEDURE: The patient was brought to the operating room and given a general endotracheal anesthetic. He had somewhat unfavorable anatomy, typically considered a difficult airway specifically. He was intubated with a GlideScope without problem. Preoperative antibiotic Ancef was given. Sequential compression device stocking used and heparin subcutaneously administered. Photographs were taken at the outset of the procedure. Full abduction of the arm was not possible. I would say could abduct to approximately 60 degrees or so. The right chest wall, axilla, and upper arm were prepared with a Betadine based solution and draped sterilely. The lesion was previously infiltrated with 1 mL of methylene blue dye for sentinel lymph node identification. The area considered negative for involvement of tumor was defined and elliptical incision was made with electrocautery. Superior and inferior flaps were developed with electrocautery, though normally I would Electronically Signed By: SOPHIE BARCENAS MD 09/04/19 1057 PATIENT NAME: ARLIN RIOS OPERATIVE REPORT DATE OF : 38 REPORT #: [id number] PHYSICIAN: SOPHIE BARCENAS MD PCP: RADHA ACOSTA MD REPORT IS CONFIDENTIAL AND NOT TO BE RELEASED WITHOUT AUTHORIZATION [facility] [address] [place] [id number] Signed do a sharp dissection only. Given the density of the tissue, edema, and so forth, it was deemed inadvisable to do sharp dissection alone. Once superior and inferior flaps were developed, dissection was begun in the superior medial aspect and the breast was excised from the pectoralis fascia partially and then pectoralis muscle itself excised to provide a negative margin. The tumor could be palpated and clearly infiltrated into the muscle itself. Meticulous care was taken to secure wound care center consultant vessels all of which were accomplished without problem. The area of Ave's nodes was clinically suspicious. Pectoralis minor was retracted as were remnants of the pectoralis major. Dissection was taken superiorly as there was no visualization of any methylene blue laden lymph nodes. A standard axillary dissection was appropriate on the basis of palpable nodules within the axilla that were very firm and hard. Using sharp dissection, the apex of the axilla was dissected identifying well the subclavian vein. The long thoracic and thoracodorsal neurovascular bundles were ultimately identified. Lymphadenectomy was taken superiorly well towards the apex of the axilla and chest wall, but palpably suspicious lymph nodes noted. Clips were applied to small vessels as necessary. Ultimately, the entire axillary pocket was excised in continuity with the breast specimen. Irrigation was undertaken in the axilla. Hemostasis assured with electrocautery. In particular transected tissue of the pectoralis muscle was carefully secured. Two separate 7 mm flat Huey drains were placed after elevating the flap superiorly and inferiorly more to allow for closure of the wound primarily. Initially, there was a fair amount of tension on the wound due to his thickened dermis, but with extensive mobilization the edges could be reapproximated. A single interrupted 0 PDS suture was used in the midportion of the wound to secure it. Subsequently, the skin was then closed with interrupted 2-0 Vicryl closely spaced in the dermal area. Steri-Strips were applied as was a silver sponge dressing. The drains were attached to bulb suction. Photographs were taken throughout the procedure. Blood loss was estimated at 150 at minimum. The patient was ultimately extubated and transferred to recovery room in good condition having suffered no complications. Sponge, needle, and instrument counts reported as correct x3. Sophie Barcenas MD Electronically Signed By: SOPHIE BARCENAS MD 09/04/19 1057 PATIENT NAME: ARLIN RIOS Alice OPERATIVE REPORT DATE OF : 39 REPORT #: [id number] PHYSICIAN: SOPHIE BARCENAS MD PCP: RADHA ACOSTA MD REPORT IS CONFIDENTIAL AND NOT TO BE RELEASED WITHOUT AUTHORIZATION [address] [address] Signed /[facility] /[id number] cc: MD Claire Rosa MD Copies: RADHA ACOSTA MD, CYNTHIA SUE MD ~ Electronically Signed By: SOPHIE BARCENAS MD 09/04/19 1057 PATIENT NAME: ARLIN RIOS OPERATIVE REPORT DATE OF : 38 REPORT #: [id number] PHYSICIAN: SOPHIE BARCENAS MD PCP: RADHA ACOSTA MD REPORT IS CONFIDENTIAL AND NOT TO BE RELEASED WITHOUT AUTHORIZATION
--- NOTE | 2019-09-04 11:09 | NUR ---
1107: THE FIRST UNIT OF BLOOD STARTED AT THIS TIME ORDERED.
--- NOTE | 2019-09-04 11:17 | NUR ---
KENNY DRAINS REMAIN COLLAPSED AND DRAINING SANG FLUID BEING HOOKED TO THE WALL SUCTION. BLOOD TRANSFUSION RUNNING AND THE PT APPEARS IN NO DISTRESS AND IS SLEEPING AT THIS TIME.
--- NOTE | 2019-09-04 11:58 | NUR ---
THE PT'S DAUGHTER (MAURICIO) ARRIVED AND WAS UPDATED TO THE PT'S STATUS AND WAS TAUGHT THE CARE OF THE KENNY DRAINS. SHE WAS VERY RELUCTANT TO BE TAUGHT AND STATES THAT THE PT SHOULD NOT BE ALLOWED TO BE DISCHARGED TOMORROW. 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 SHE STATES THAT HE NEEDS TO STAY HERE BECAUSE SHE HAS NO HELP AND IS OVERWELMED SHE TAKE "LITHIUM AND GOES TO [facility]".
--- NOTE | 2019-09-04 12:46 | NUR ---
Pt assisted back to his bed per his request. Pt denies any pain and quickly fell to sleep. Blood transfusion continues at this time with no signs of a reaction.
--- NOTE | 2019-09-04 12:57 | NUR ---
MD AWARE OF URINE OUTPUT. PT RECIEVING BLOOD TRANSFUSION.
--- NOTE | 2019-09-04 13:48 | NUR ---
PT SITTING UP AT THE BEDSIDE EATING HIS LUNCH AT THIS TIME. HE CONTINUES TO DENY AND PAIN.
--- NOTE | 2019-09-04 14:04 | NUR ---
PT NOW BACK TO BED FOLLOWING HAVING LUNCH. HE ATE 100% OF HIS MEAL AND CONTINUES TO DENIE ANY PAIN OR PROBLEMS. KENNY DRAINS WORKING WELL AND HAVE PUT OUT 100 ML SINCE THEY WERE HOOKED TO WALL SUCTION, IT APPEARS THAT THIS IS ALL FROM KENNY #1. THE SECOND ORDERED UNIT OF BLOOD CONTINUES INFUSING ORDERED.
--- NOTE | 2019-09-04 15:10 | NUR ---
PT CONTINUES TO DENY ANY PAIN AND APPEARS IN NO DISTRESS.
--- NOTE | 2019-09-04 15:27 | NUR ---
SECOND UNIT OF BLOOD COMPLETED. PT CONTINUES TO DENY ANY PAIN OR PROBLEMS. VSS.
--- NOTE | 2019-09-04 16:36 | NUR ---
Pt was incont of a very large amount of urine. Pt was cleaned up and a fresh attends was placed. There is some redness noted in his groin area and in his gluteal fold, after he was cleaned barrier cream was applied.
--- NOTE | 2019-09-04 17:23 | NUR ---
Dr Rock called this dept and was checking up on the pt. He was updated to include the pt's daughter's reluctants to learn the drains and stating she does not belive it is ok for the pt to go home with the drains in place.
--- NOTE | 2019-09-04 17:50 | NUR ---
PT HAS SLEPT ON AND OFF ALL SHIFT. HE HAS APPEARED COMFORTABLE AND HAS DENIED ANY PAIN THIS SHIFT. HE HAD NOT VOIDED FOR MOST OF THIS SHIFT THEN WAS INCONT OF A LARGE AMOUNT OF URINE. HIS H&H WAS 7.6/24.5 THIS AM AND HE RECIEVED 2 UNITS OF RBC'S ORDERED. HIS KENNY DRAINS WERE NOT STAYING INFLATED AND THEY WERE MOVED TO WALL SUCTION AND HAVE BEEN FUCTIONING WELL SINCE. HE HAS PUT OUT ABOUT 150 SINCE THEY HAVE BEEN TO WALL SUCTION. PT HAS SOME DEMENTIA AND ONLY ANSWERS SOME QUESTIONS AND WITH SHORT ANSWERS, DUE TO THIS THE BED/CHAIR ALARM WAS USED. LR IS RUNNING AT 85ML/HR ORDERED. DRESSING INTACT WITH SOME DRAINAGE NOTED.
--- NOTE | 2019-09-04 18:19 | NUR ---
I was called by the pt's daughter into the pt's room. On arrival to the room the pt states, "I'm going home today". He was informed of the reason that he is here and of the care that he still requires. He states, "I don't care". "I don't care if I go home and ". "Call me a cab or the public safety director". Rebecca the set up and charger was notified of this and is in the room speaking with the pt at this time.
--- NOTE | 2019-09-04 18:49 | NUR ---
WHILE ATTEMPTING TO FLUSH THE IV THE PT SWUNG HIS FIST AT ME. HE THAT STATES HE WANTS TO SEE THE DOCTOR. HE WAS INFORMED THAT HE HAD BEEN CALLED AND NOTIFIED OF THIS. PT ALSO REFUSED TO ALLOW ME TO COMPLETE HIS VITAL SIGNS. PT MEDICATED FOR AGITATION, SEE EMAR. BOTH THE CHARGE NURSE AND ANOTHER GELATIN MAKER UTILITY SPOKE WITH THE PT AND HE NOW HAS STOPPED SPEAKING AND REFUSED HIS DINNER. WILL CONTINUE TO MONITOR.
--- NOTE | 2019-09-04 19:10 | NUR ---
REPORT RECEIVED FROM DAY SHIFT RN. PT LYING IN BED, CONFUSED ASKING TO SEE THE DOCTOR. IT WAS EXPLAINED THAT THE DOCTOR HAD BEEN CALLED. KENNY DRAINS X 2 BACK TO BULB SUCTION. DRESSING ON RIGHT BREAST, CDI. IVF INFUSING. SCD'S ON. CALL LIGHT IN REACH, BED ALARM ON.
--- NOTE | 2019-09-04 19:33 | NUR ---
AYAH AND I GOT PATIENT UP IN HIS CHAIR FOR BREAKFAST.
--- NOTE | 2019-09-04 19:58 | NUR ---
charge nurse note:. Pt beligerent, tryong to get out of bed, not listening to instructions. pulling at iv line and aidan lines. midline and r chest dressing intact. Medicated with Ativan 1mg IV by primary RN. will SL IVF as a nursing judgement at this time. will restart. and will call Dr Niño. Pt to be moved closed to nursing station when he calms down. as he tries to get out of bed and trying to crawl out over rails. Pt on room air. attends in place. This nurse will do a 1:1 per safety until pt calms down. Bed alarm on, rails up ,
--- NOTE | 2019-09-04 19:58 | NUR ---
PT INCREASINGLY AGITATED AND COMBATIVE. REQUESTING AGAIN TO SEE DOCTOR, ATTEMPTED TO REORIENT PT. PT TEARING AT IV TUBING AND GOWN. PRN GIVEN FOR AGITATION AND COMBATIVENESS. MURAL ARTIST IN THE ROOM TO ASSIST AND SIT WITH PATIENT AT THIS TIME.
--- NOTE | 2019-09-04 20:30 | NUR ---
PT INCONTINENT OF URINE, ATTENDS CHANGED WITH 2 STAFF ASSIST. ALEXANDER CARE DONE. PT SOMEWHAT COOPERATIVE.
--- NOTE | 2019-09-04 20:53 | NUR ---
pt moved to room 120 at 2044- Received 5mg Haldol IV as he was still restless, agitated and trying to hit people. 2 Raciel Bandages and abd binder applied to chest to prevent accicental dislodgement of KENNY and chest dressing. KENNY to gravity at this time, SL at this time. Was incontinent, changed, semi cooperative. COntinues on 1:1, less aggressive, continues to receive information not to take abd binder off, semi receptive. Bed alarm on. Will notify Dr Rock in one hour.
--- NOTE | 2019-09-04 21:23 | NUR ---
DR BARCENAS NOTIFIED WITH PT UPDATES. NEW ORDERS RECEIVED.. DC ATIVAN. USE HALDOL NEEDED. CPOX IN PLACE PLEASE. FOR IVF. USE JUDGEMENT. IF AGITATED. SL UNTIL CALM WE NEED TO MARTINA A PATENT IV SITE FOR LUCHO. WHEN CALMER, CONTINUES IVF ORDERED. FOR KENNY, KEEP TO WALL SUCTION IF KENNY NOT HOLDING SUCTION BY ITSELF. OK TO AIR SUCTION IF JPS HOLDING SUCTION. THE MOST IMPORTANT IS TO KEEP PT FROM ACCIDENTALLY DISLODGING KENNY AT THIS TIME. INFORMED OF 2 ERIN WRAP/ABD BINDER IN PLACE AT THIS TIME. STATED OK. WILL REASSESS IN AM. PT CALM, RESP EVEN, UNLABORED AT THIS TIME, BED ALARM ON. TARA PEACOCK RN NOTIFIED
--- NOTE | 2019-09-04 21:45 | NUR ---
PT RESTING WITH EYES CLOSED. KENNY DRAIN X 2 PLACED BACK TO WALL SUCTION DUE TO BULB SUCTION NOT HOLDING. ABD BINDER AND ERIN WRAPS X [address]. IVF INFUSING. CPOX IN PLACE, O2 97% HR 67.
--- NOTE | 2019-09-04 22:30 | NUR ---
PT BECOMING RESTLESS AND PULLING AT ABD BINDER. MEDICATED FOR PAIN WITH IV PRN. RN REMAINS AT BEDSIDE.
--- NOTE | 2019-09-05 00:38 | NUR ---
PT RESTING ON LEFT SIDE WITH EYES CLOSED. HR 64, OXYGEN 96% ON RA, RR 18. DRAINS TO WALL SUCTION. IVF INFUSING. ABD BINDER IN PLACE.
--- NOTE | 2019-09-05 02:31 | NUR ---
PT CONTINUES TO REST ON LEFT SIDE, EYES CLOSED. OXYGEN 96% ON RA, HR 59, RR 18. DRAINS X 2 TO WALL SUCTION. IVF INFUSING. SIDE RAILS UP, BED ALARM ON.
--- NOTE | 2019-09-05 05:45 | NUR ---
IN TO DO CARES, PT RESPONSIVE TO VOICE AND TOUCH. PT NON-VERBAL. REPOSITIONED IN BED. PT INCONTINENT OF URINE. ATTENDS CHANGED, ALEXANDER CARE DONE. DRAINS X 2 TO WALL SUCTION, EMPTIED FOR A COMBINED 50 ML SANGUINEOUS DRAINAGE. DRESSING TO RIGHT BREAST AND MIDLINE INTACT WITH SANGUINEOUS DRAINAGE NOTED. ERIN WRAP AND ABD BINDER IN PLACE. CPOX IN PLACE. IVF INFUSING. SCHEDULED PO MEDS HELD THIS AM DUE TO PT'S SOMNOLENCE.
--- NOTE | 2019-09-05 06:38 | NUR ---
pt semi awake, disconnected CPOX connector from finger. then went back to sleep. O@ sats on room air 96%, P63, R16. CPOX turned off at this time.will reconnedct and do spot checks. will notify Dr Rock, IVF infusing, Pt awoke and turned to R side, not pulling on IVF line or KENNY that are supervisor photoengraving to wall suction at this time. Raciel wrap and Abd binder in place.
--- NOTE | 2019-09-05 06:39 | NUR ---
patient is resting , patient was cleaned up, call light in reach fresh water given.
--- NOTE | 2019-09-05 07:38 | NUR ---
0705: REPORT RECIEVED FROM TARA ACOSTA. PT SLEEPING AT THIS TIME, BED ALARM IS ON.
--- NOTE | 2019-09-05 08:54 | NUR ---
PT SLEEPING. BED ALARM IS TURNED ON, RR IS 16. KENNY DRAINS REMAIN ON WALL SUCTION AND ARE DRAINING DARK RED DRAINAGE. PT VISIBLE FROM THE NURSING STATION. IV RUNNING LR AT 85 ML/HR.
--- NOTE | 2019-09-05 10:26 | NUR ---
RIGHT CHEST DRESSING CDI AND KENNY DRAINS REMAIN TO WALL SUCTION AND HAVE DRIANED 50 ML IN THE LAST 4 HOURS. PT ONLY GIVING NODS OR ONE WORD ANSWERS AND HE DENIES PAIN. PT WAS INCONT OF URINE AND HE WAS CLEANED UP AND A FRESH ATTENDS WAS PLACED WELL AND BARRIER CREAM. THE GROIN AND GLUTEAL FOLD REDNESS THAT WAS NOTED YESTERDAY IS MUCH IMPROVED TODAY. SCD'S AND PULSE OX WERE REPLACED AT THE PT IS TOLERATING THEM AT THIS TIME. PT QUICKLY BACK TO SLEEP.
--- NOTE | 2019-09-05 10:35 | NUR ---
KENNY DRAINS TAKEN OFF OF WALL SUCTION AND PLACED TO THERE OWN SUCTION A TRIAL. WILL CONTINUE TO MONITOR.
--- NOTE | 2019-09-05 11:16 | NUR ---
The pt had failed his trial with the aidan drains being on there own suction. Dr Rock arrived to see the pt and he changed the right chest wall dressing. AIDAN drains now replaced to there own suction. Raciel wraps removed by the doctor, the ABD binder was replaced. The pt tolerated the dressing change well and he continues to deny any pain. Will continue to monitor.
--- NOTE | 2019-09-05 12:17 | NUR ---
Pt assisted with 2 people to the chair. He is now sitting up eating his lunch. He continues to deny any pain and the aidan bulbs both remain collasped.
--- NOTE | 2019-09-05 12:30 | NUR ---
Pt continues to appear in now distress and he deines pain. Pt just finished eating 100% of his lunch and remains in the chair with the alarm on.
--- NOTE | 2019-09-05 13:57 | NUR ---
I ATTEMPTED TO TEACH THE PT DRAIN CARE ORDERED. THE PT WILL NOT PAY ATTENTION AND WILL NOT EVEN ANSWER QUESTIONS ABOUT IT WHEN ASKED. THE PT WAS INCONT OF URINE AND HE WAS GIVEN A BED BATH AND FRESH ATTENDS WERE PLACED. THE PT'S LOWER LEGS AND FEET ARE VERY DRY AND LOTION WAS APPLED. THE TWO KENNY DRAINS CONTINUE TO HOLD SUCTION AND ARE WORKING DESIRED AT THIS TIME. DRESSING TO THE RIGHT CHEST WALL REMAINS CDI. VSS, CALL HARPER IN REACH, ALARM REMAINS ON.
--- NOTE | 2019-09-05 14:50 | NUR ---
Pt in his bed sleeping, bed alarm is on, scd's on and running and call light within reach.
--- NOTE | 2019-09-05 15:19 | NUR ---
PATIENT WAS SITTING UP IN HIS CHAIR FOR LUNCH. GAVE HIM A BED BATH A NEW GOWN WASHED HIS HAIR. PUT LOTION ALL OVER HIS BODY. WE CHANGED HIS TAPED ATTEND. NOW PATIENT IS IN BED.
--- NOTE | 2019-09-05 16:15 | NUR ---
PT'S DAUGHTER CALLED TO CHECK ON PT AND DISCHARGE PLAN, SHE VERALIZED THAT THE PLAN WAS TO DISCHARGE TODAY. DAUGHTER UPDATED THAT THE PLAN NOW IS TO DISCHARGE TOMORROW AFTER DRAIN CARE EDUCATION CAN BE TAUGHT AND HOME HEALTH UPDATED AND ON BOARD FOR WOUND CARE. PT DAUGHTER SAID SHE IS CONCERNED ABOUT COMING [facility] PT WILL THINK HE IS GETTING TO GO HOME AND MAY BECOME AGGETATATED, PT DAUGHTER VERBALIZED MAYBE SHE WILL NOT COME UP TODAY, THIS RN AGREED THAT IS A POSSIBILITY BUT THAT IS YOU FEEL YOU WANT TO COME VISIT YOU ARE WELCOME TO DO SO. DAUGHTER SAID SHE WILL BE UP TO THE HOSPITAL BY 1100 AM TOMORROW AND WILL BE READY TO LEARN DRAIN CARE, SHE ALSO HAS TOMORROW AND FRIDAY OFF WORK AND CAN BE HOME WITH PT. SHE ALSO VERBALIZED THAT [facility] IS ALREADY SEEING PT REGULARLY.
--- NOTE | 2019-09-05 16:50 | NUR ---
Pt repositioned and he continues to deny any pain. KENNY drains emptied at this time, dressing remains intact.
--- NOTE | 2019-09-05 18:46 | NUR ---
PT HAD A BETTER DAY TODAY AND HAS BEEN MUCH MORE COOPERATIVE WITH STAFF TODAY. HE HAD A BED BATH WHICH HE TOLERATED WELL. HE HAS NOT PULLED AT THE KENNY DRAINS, DRESSING OR IV TODAY. HE REMAINS IMPULSIVE HOWEVER AND DID ATTEMPT TO STAND UP FROM HIS CHAIR WITHOUT ASSIST, WHEN THE ALARM WENT OFF HE SAT BACK DOWN. I ATTMEPTED TO TEACH HIM ABOUT KATHERINE SAUL AND HE WOULD NOT EVEN SPEAK WITH ME ABOUT IT AND WOULD NOT ANSWER QUESTIONS. THE PT'S DAUGHTER DID NOT COME IN TO THE HOSPITAL THIS SHIFT. RIGHT CHEST WALL DRESSING WAS CHANGED BY DR BARCENAS TODAY AND HAS HAD THE KENNY DRAINS TO THERE OWN SUCTION SINCE. THEY APPEAR TO BE HOLDING SUCTION FOR SEVERAL HOURS AFTER DRAINING EACH TIME.
--- NOTE | 2019-09-05 19:01 | NUR ---
BP LAYING IS 114/35 AND 89/33 SITTING UP. LAST H&H WAS 7.9 AND 25, PT HAS HAD GOOD URINE OUTPUT. PT DENIES ANY LIGHTHEADNESS. DR BARCENAS CALLED AND NOTIFIED OF THE PT'S STATUS.
--- NOTE | 2019-09-05 19:25 | NUR ---
REPORT RECEIVED FROM DAY SHIFT RN. PT LYING IN BED, ALERT. ABD BINDER IN PLACE. SCD'S ON. IVF INFUSING. PT DENIES PAIN. BED ALARM ON, CALL LIGHT IN REACH.
--- NOTE | 2019-09-05 20:41 | NUR ---
LOAN BROKER ROUNDING NOTE. PT WAVES JACKHAMMER OPERATOR INTO ROOM STATES "CAN YOU LOOSEN MY LEGS" SCD'S ACTIVELY PUMPING WHEN JACKHAMMER OPERATOR ASSESSES. SCDS REPOSITIONED. PT DENIES FURTHER NEEDS. CALL LIGHT IN REACH. BED ALARM ACTIVE. ROOM IN VIEW OF RN STATION. WHITE BOARD UDPATED.
--- NOTE | 2019-09-05 21:40 | NUR ---
EVENING ASSESSMENT COMPLETE. SCHEDULED MEDS GIVEN WITH HIGH PROTEIN ENSURE. PT INCONTINENT OF URINE, ATTENDS CHANGED, ALEXANDER CARE DONE. DRESSING TO CHEST INTACT, ABD BINDER IN PLACE. KENNY X 2 DRAINED, STRIPPED, AND RECORDED. BULB SUCTION APPEARS TO BE HOLDING. PT PLEASANT AND COOPERATIVE, ABLE TO FOLLOW COMMANDS. REPOSITIONED IN BED WITH PILLOWS, PT ABLE TO ASSIST. PT DENIES FURTHER NEEDS. BED ALARM ON, CALL LIGHT IN REACH.
--- NOTE | 2019-09-05 23:45 | NUR ---
PT RESTLESS AND FIDGETY IN BED. PT IS NOT PULLING AT HIS DRESSING OR DRAINS, OR BEING INAPPROPRIATE. WHEN ASKED IF PT IS HAVING PAIN HE STATES "YES", BUT IS NOT ABLE TO COMMUNICATE A NUMBER. PT STATES HE "NEEDS TO BE SHOT" IN RESPONSE TO BEING REPOSITIONED FOR COMFORT. PT MEDICATED WITH IV PRN PAIN. KENNY DRAINS STRIPPED, EMPTIED, AND RECORDED. BULB # 1 IMMEDIATELY REFILLS WITH AIR, WILL NOT MAINTAIN SUCTION. KENNY # 2 APPEARS TO BE HOLDING SUCTION AT THIS TIME.
--- NOTE | 2019-09-06 00:47 | NUR ---
PT APPEARS TO BE RESTING COMFORTABLY WITH EYES CLOSED LYING ON LEFT SIDE. BED ALARM ON.
--- NOTE | 2019-09-06 02:30 | NUR ---
PT RESTING WITH EYES CLOSED. KENNY #1 DRAINED, STRIPPED, AND RECORDED. APPEARS TO BE MAINTAINING SUCTION AT THIS TIME.
--- NOTE | 2019-09-06 03:53 | NUR ---
PT WAKING UP. REPOSITIONED IN BED. SIPS OF WATER GIVEN.
--- NOTE | 2019-09-06 04:06 | NUR ---
PT PULLED LEFT AC IV OUT BECAUSE IT WAS "ITCHING". TIP IN TACT. PT OTHERWISE NOT AGITATED OR PULLING ON DRAINS/DRESSINGS.
--- NOTE | 2019-09-06 05:33 | NUR ---
PT INCONTINENT OF URINE, ATTENDS CHANGED. ALEXANDER CARE DONE. REPOSITIONED IN BED WITH 2PA. PT STATES HE'S RESTLESS, SCHEDULED MEDS GIVEN WITH ENSURE. KENNY # 1 NOT HOLDING SUCTION AT THIS TIME. BOTH DRAINS STRIPPED, DRAINED, AND RECORDED. DRESSING ON CHEST INTACT. ABD BINDER IN PLACE. BED ALARM ON.
--- NOTE | 2019-09-06 06:03 | NUR ---
PATIENT CARE DONE, CALL LIGHT IN REACH, FRESH WATER GIVEN AND AND ENSURE
--- NOTE | 2019-09-06 06:27 | NUR ---
PT SLEPT ON AND OFF, BECAME RESTLESS AROUND 0400. PULLED LEFT AC IV OUT, BUT HAS OTHER [place] BEEN APPROPRIATE AND NOT PULLED ON DRAINS OR DRESSINGS. ABD BINDER IN PLACE TO PROTECT KENNY X 2. XEROFORM AND OPSITE OVER INCISION INTACT. PO TYLENOL FOR PAIN. ONE DOSE IV TORADOL LAST NOC. NEW ORDERS FOR PO MOTRIN. BED ALARM. INCONTINENT.
--- NOTE | 2019-09-06 06:43 | NUR ---
CALLED DR. BARCENAS REGARDING PT PULLING IV OUT AND LEAKY LEFT WRIST IV. NEW ORDERS RECEIVED. OK'D TO HAVE NO IV ACCESS. ADDITIONAL ORDERS GIVEN FOR PRN PAIN MEDS WELL.
--- NOTE | 2019-09-06 07:28 | NUR ---
PT RESTING IN BED QUIET ALERT, BEDSIDE REPORT RECEIVED. PT AGREES HE IS COMFORTABLE WHEN ASKED, DENIES NEED OF
--- NOTE | 2019-09-06 08:10 | NUR ---
PATIENT INCONT. ALEXANDER CARE DONE AND NEW ATTENDS IN PLACE. PATIENT UP TO CHAIR, 2PA. WARM BLANKET GIVEN. LINENS CHANGED. CALL LIGHT IN REACH. NO FURTHER NEEDS AT THIS TIME.
--- NOTE | 2019-09-06 08:25 | NUR ---
Spoke with Manfred. He is hard of hearing. Lives with his daughter, Negar, for last 6 months. Has extensive ca. Plans on returning home today with daughter. Dr. Niño in room and dc instructions given. Pt currently on Home Health and wishes to continue with [facility]. will write resumption orders for dc. Pt has multiple DME, he and daughter deny need for further. Denies financial issues or use of food bank or [facility].
--- NOTE | 2019-09-06 08:53 | NUR ---
PT UP TO THE CHAIR 2 PERSON ASSIST TOLERATES MOST OF MORNING MEAL REQUESTS 2ND CUP OF COFFEE, PROVIDED. PT STATES HE WANTS TO GO HOME, ASKS FOR HIS CLOTHES. PT ENCOURAGED TO WAIT FOR HIS DAUGHTER WHO WILL BE HERE LATER. CALL LIGHT IN HAND.
--- NOTE | 2019-09-06 10:43 | NUR ---
PT IS DRESSED AND WAITING FOR HIS DAUGHTER TO COME TO PICK HIM UP. DENIES PAIN OR NEEDS OF AT THIS TIME. DRESSING TO CHEST CHANGED PER DR BARCENAS
[2019-09-06] MEDS ORDERED: TYLENOL325 MG PO (11:21)
--- NOTE | 2019-09-06 11:28 | NUR ---
MET WITH DAUGHTER SHE IS ABLE TO DEMONSTRATE EMPTYING OF KENNY AFTER DEMONSTRATION. QUESTIONS ASKED AND ANSWERED. W/C TOMASZ CALLED FOR PT. BP 130/52 TEMP97.6 HR82 SATS 97% ON RA PERSONAL ITEMS RETURNED
--- NOTE | 2019-09-06 13:53 | NUR ---
CHECKED ON PT-HE WAS DRESSED AND LAYING IN BED. PT HAS DEMENTIA AND STRUGGLED TO COMMUNICATE. HE SAID HE HURT, GAVE A BLESSING, WILL FOLLOW NEEDED
--- NOTE | 2019-09-06 14:00 | NUR ---
Notified by [facility], pt's HH certification period while he was hospitalized. He will need new admission with F2f. Dr. Niño contacted and message left.
--- NOTE | 2019-09-07 14:00 | NUR ---
Left a message for Dr. Niño last night for orders for resumption of HH as he did not write orders. I recieved a call from Andra at [facility] and pt's certification period while he was hospitalized. Received message from Dr. Niño he does not plan on continuing HH as pt was seen for wound care, post surgery pt. does not need wound care. Daughter will empty drains.
--- NOTE | 2019-09-08 11:44 | DS ---
[facility] [address] [place], [place] [address] Signed ADMISSION DATE: 09/03/2019 DISCHARGE DATE: 09/06/2019 REASON FOR ADMISSION: 78-year-old white man is patient of Dr. Radha Acosta and longstanding has had a subareolar mass which has now become an ulcerating, eroding, bleeding neoplasm penetrating into the pectoralis muscle. Office biopsy confirmed this to be infiltrating ductal breast cancer. He is admitted at this time to undergo radical mastectomy. PERTINENT PHYSICAL EXAM: GENERAL: An elderly male with a full cam and a fungating foul-smelling persistently bleeding mass of the right chest wall. CHEST: Clear. HEART: Regular. ABDOMEN: Obese. PSYCH: Mentally he is marginally interactive. EXTREMITIES: Show limited abduction of his right arm of longstanding. HOSPITAL COURSE: On September 03, 2019, he underwent right radical mastectomy, obviously including mastectomy and excision of pectoralis muscle through which the tumor was eroding. Colo lymph node methylene blue dye was injected, but there was essentially no uptake in any of the lymph nodes and complete axillary dissection was undertaken to level 3 axillary nodes based on them being clinically positive at the time of exploration. Two drains were placed. Of note, he was anemic prior to operation with a hematocrit of 24 and underwent 2 units of packed red cells transfusion immediately preoperatively. This got his hematocrit up to 33. His operative intervention did have some blood loss of course and postoperatively he had bloody drainage in both drains. This likely was related to oozing from remaining pectoralis muscle that was transected. His hematocrit on postop day #1 was 24.5, and on that basis he was transfused two additional units of packed red cells. His hematocrit stayed steady after that at 25. There was some difficulty maintaining suction on his Huey drain bulbs and the dressing was changed over the wound to include a Xeroform gauze and OpSite to apply better airtight seal. There was no gross separation of the wound and both superior and inferior flaps were quite viable. This was somewhat beneficial, but not completely so Electronically Signed By: SOPHIE BARCENAS MD 09/08/19 1144 PATIENT NAME: ARLIN RIOS DISCHARGE SUMMARY DATE OF : 38 REPORT #: [id number] PHYSICIAN: SOPHIE BARCENAS MD PCP: RADHA ACOSTA MD REPORT IS CONFIDENTIAL AND NOT TO BE RELEASED WITHOUT AUTHORIZATION [facility] [address] [place] [id number] Signed and it was anticipated that the wound dressing will be changed again to include a wound VAC adhesive, which is generally more airtight. The final pathology is pending; however, I suspect there will be positive lymph nodes in the final assessment. By the day of discharge, the patient is far more alert than usual and desirous of discharge. His daughter will be coming in to additionally learn drain care management. We will see him back in a week or so for drain removal if appropriate at that time. Of note, he did have postoperative delirium on the first postoperative day, which was managed effectively with Haldol, but this seemed not to be a problem thereafter. DISCHARGE DIAGNOSES: 1. 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 2. Poorly communicative countenance. 3. Dyslipidemia. 4. Obesity. DISCHARGE MEDICATIONS: Include: 1. Tylenol 325 mg tablets 1-2 p.o. q.6 hours p.r.n. pain. 2. Ibuprofen 200 mg three tabs p.o. q.i.d. as needed for pain. 3. Fluoxetine 20 mg p.o. daily. 4. Sennosides 8.6 mg tablet p.o. daily. MD MARY Valencia/MODL /[id number] Copies: Electronically Signed By: SOPHIE BARCENAS MD 09/08/19 1144 PATIENT NAME: ARLIN RIOS DISCHARGE SUMMARY DATE OF : 38 REPORT #: [id number] PHYSICIAN: SOPHIE BARCENAS MD PCP: RADHA ACOSTA MD REPORT IS CONFIDENTIAL AND NOT TO BE RELEASED WITHOUT AUTHORIZATION [facility] [address] [place] [address] [place] [address] Signed ~ Electronically Signed By: SOPHIE BARCENAS MD 09/08/19 1144 PATIENT NAME: ARLIN RIOS DISCHARGE SUMMARY DATE OF : 38 REPORT #: [id number] PHYSICIAN: SOPHIE BARCENAS MD PCP: RADHA ACOSTA MD REPORT IS CONFIDENTIAL AND NOT TO BE RELEASED WITHOUT AUTHORIZATION
== END 2019-09-06 11:25 | disposition home health service (06) | DRG 580 ==
LOC: DS 07:55 → MS 20:56 → DS 20:57 → MS 20:57 → DS 09-06 11:25 → MS 09-06 11:25
PROVIDERS: ADMIT Surgery
PROC: 07T50ZZ Resection of Right Axillary Lymphatic, Open Approach (ICD-10-PCS; 2019-09-03)
PROC: 30233N1 Transfusion of Nonautologous Red Blood Cells into Peripheral Vein, Percutaneous Approach (ICD-10-PCS; 2019-09-03)
PROC: 0HTT0ZZ Resection of Right Breast, Open Approach (ICD-10-PCS; principal; 2019-09-03 13:00)
PROC: 0KBH0ZZ Excision of Right Thorax Muscle, Open Approach (ICD-10-PCS; 2019-09-03 13:00)
DX: C50.021 Malignant neoplasm of nipple and areola, right male breast (principal); C77.3 Secondary and unspecified malignant neoplasm of axilla and upper limb lymph nodes; D50.0 Iron deficiency anemia secondary to blood loss (chronic); G25.81 Restless legs syndrome; E78.5 Hyperlipidemia, unspecified; E66.9 Obesity, unspecified; Z79.899 Other long term (current) drug therapy; Z88.8 Allergy status to other drugs, medicaments and biological substances; Z68.29 Body mass index [BMI] 29.0-29.9, adult
CPT/HCPCS: 00404; 36415; 36430; 85025; 86850; 86900; 86901; 86920; A9270; J0330; J0690; J1100; J1630; J1644; J1885; J2001; J2060; J2250; J2270; J2405; J2704; J3010; J3475; J7030; J7040; J7121; P9016; Q9968

== ENCOUNTER 2019-09-22 16:53 | Inpatient (IN) | payer MEDICARE ==
[~2019-09-22] VITALS: Ht 175.3 cm; Wt 92.1 kg
--- NOTE | ~2019-09-22 | DS ---
[facility] [address], [place] [address] Draft ADMISSION DATE: 10/04/2019 DISCHARGE DATE: 10/08/2019 REASON FOR ADMISSION: This 78-year-old white man is patient of Dr. Radha Acosta and had a bleeding, fungating extensive right breast cancer extending through the pectoralis muscle. He underwent right radical mastectomy by me on September 03, 2019. His final pathology showed over 10 lymph nodes positive for metastatic disease and a questionably positive deep margin despite excision of the right pectoral muscle. The patient lives in a home occupied also by his [id number], who is limited in her ability to care for the patient. The patient had refused a senior living postoperatively as he had experience in one of which he did not like. In any case, two drains were placed at the time of his original operation and he was hospitalized for several days after the initial operation. He was seen in office in followup with essentially no wound care having been undertaken and leakage of the murky flap drain fluid, which proved to be Proteus mirabilis on culture. The midline incision was due to lack of care with his drains, but both superior and inferior flaps were completely viable, otherwise. In the office setting, the wound was closed allowing for good suction application and he was treated with Augmentin antibiotic, for which the pathogen was sensitive. He was seen by Dr. Acosta and noted that there was some separation of wound in the midportion and on that basis, direct admission was advised to further evaluate and treat his wound problem. PERTINENT PHYSICAL EXAMINATION: GENERAL: Showed a white haired man, looking far older than his age of 78 years. He was alert, oriented, and not systemically toxic clinically. CHEST: Shows normal respiratory excursion. The right chest wall did show some mild edema, but no erythema. The flaps were viable. There was no sign of necrosis of the flap. Sutures that were placed in the office setting in the medial aspect were intact. A small area of separation in the midportion wound about 2 cm in length was noted fluid was draining through his remaining axillary drain. CBC showed a white count of 11.2, hematocrit of 32.6, and platelets 673. Chem profile was ultimately found to be normal. HOSPITAL COURSE: He was given intravenous antibiotics with the knowledge of his Proteus mirabilis infection having been previously identified and on September 23, 2019, underwent exam under anesthesia and debridement and scarification with curettage of the chest wall and cavity that had developed with neglect of his drainage tubes. Irrigation and PATIENT NAME: ARLIN RIOS DISCHARGE SUMMARY DATE OF : 38 REPORT #: [id number] PHYSICIAN: SOPHIE BARCENAS MD PCP: RADHA ACOSTA MD REPORT IS CONFIDENTIAL AND NOT TO BE RELEASED WITHOUT AUTHORIZATION [address] [address] Draft debridement of the granulation tissue were undertaken and two 7 mm Huey drains were placed. Closure of the chest wall wound (25 cm in length) was undertaken with a running nylon suture. He held good suction with the drains initially and was much improved. The drains showed serosanguineous fluid. Discussions were made with discharge planners regarding disposition which might be better accomplished in a senior living setting. The patient and his daughter were extremely resistant to such an idea as it had an unfortunate experience in the past. He was maintained with intravenous antibiotics and his culture done at this debridement showed methicillin-resistant Staph aureus (MRSA). No evidence of Proteus mirabilis. The patient is generally difficult to communicate with by his own disinterest in doing so, but showed no sign of systemic toxicity. The MRSA that was cultured was sensitive to vancomycin, daptomycin, linezolid, tigecycline, and resistant to all others including Bactrim. The patient mobilized reasonably well, began to eat better. His Prozac medication was reinstituted. The patient was resistant to self-care including shower and even allowing to shower, though he was gently guided to better hygiene. Correspondence by nursing personnel when his daughter was available showed both he and his daughter more amenable to a half-way facility and plans were made for consultation. By September 28, 2019, note was made that suction was not holding well and the fluid in the drains was somewhat cloudy. Wall suction was initiated, which allowed for good apposition of the flaps to the chest wall. He was begun on vancomycin when the cultures did show MRSA. On October 01, 2019, he underwent exam under anesthesia. Curettage and debridement of the wound space with application of a wound pressure therapy sponge (Knutson and Nephew device). The medial aspect of flaps had scarified to the chest wall relatively well. Additional cultures showed no further signs of infectious process. Consultation was undertaken with Dr. Mai as the patient had bouts of significant tachycardia and some hypotension associated with nocturnal delirium. He was known to have severe aortic stenosis. He was given additional fluid, which did help his overall situation. He did not show decreased oxygen saturations or anything of that sort. He did have additional tachycardia and wheezing and light diuresis with Lasix was beneficial ultimately. Note was made that the pathology report of products really showing no sign of malignancy in the debrided tissue of the chest wall (as expected). On October 05, 2019, he underwent exam under anesthesia once again for change of the wound VAC. He was found to have marked improvement of the wound including the flaps nearly apposed superiorly and inferiorly with mainly a deep space in the axilla and a small amount laterally in the wound. At this point, he was deemed likely to tolerate bedside wound VAC changes by nursing personnel. PATIENT NAME: ARLIN RIOS DISCHARGE SUMMARY DATE OF : 38 REPORT #: [id number] PHYSICIAN: SOPHIE BARCENAS MD PCP: RADHA ACOSTA MD REPORT IS CONFIDENTIAL AND NOT TO BE RELEASED WITHOUT AUTHORIZATION [facility] [address], [place] [address] Draft A beta-faizan had been initiated under the direction of Dr. Mai for his tachycardic episodes, which he tolerated well. Diuresis with Lasix intravenously and subsequently orally given was beneficial as well. Plans were made for transfer of his outpatient care to [facility] where they have excellent capability at wound VAC management. I do not expect him to have any problems with wound VAC dressing changes. The patient is noted to be a do not resuscitate per his request. Phone consultation was undertaken with his daughter. It is acknowledged that the level of care that the patient requires is beyond that which any normal person would be able to provide in a home setting. Transfer to [facility] was accomplished on October 08, 2019, anticipating wound VAC changes there. MEDICATIONS: At discharge will include: 1. Tylenol 1000 mg p.o. q.8 hours as needed for pain. 2. Milk of magnesia as needed for constipation. 3. Prozac 20 mg p.o. daily. 4. Albuterol nebulizer q.i.d. as needed. 5. Nystatin powder b.i.d. topically as needed. 6. Metoprolol XL 50 mg p.o. daily. He has completed his course of vancomycin intravenously as well as Augmentin as an outpatient and subsequently doxycycline that had been prescribed based empirically on his cultures. FOLLOWUP PLANS: Due to the difficulty of the patient's transport, I will plan to do a house call at the senior living in due course as needed. DISCHARGE DIAGNOSES: 1. 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 2. Failure of wound care at home with resultant Proteus mirabilis infection and superficial dehiscence without necrosis of skin flaps. 3. Operative debridement of chest wall wound and flaps and subsequent debridement x2 with application of wound VAC. 4. Severe aortic stenosis. 5. Episodic symptomatic tachycardia related to dehydration. 6. Psychologic disturbance, antisocial behavior, anxiety, and depression. PATIENT NAME: ARLIN RIOS DISCHARGE SUMMARY DATE OF : 38 REPORT #: [id number] PHYSICIAN: SOPHIE BARCENAS MD PCP: RADHA ACOSTA MD REPORT IS CONFIDENTIAL AND NOT TO BE RELEASED WITHOUT AUTHORIZATION [address] [address] Draft MD MARY Valencia/MODL /[id number] Copies: ~ PATIENT NAME: ARLIN RIOS DISCHARGE SUMMARY DATE OF : 38 REPORT #: [id number] PHYSICIAN: SOPHIE BARCENAS MD PCP: RADHA ACOSTA MD REPORT IS CONFIDENTIAL AND NOT TO BE RELEASED WITHOUT AUTHORIZATION
[~2019-09-22 16:53] MED LIST changes: +FLUOXETINE HCL20 M1 PO; +IBUPROFEN200 MG PO; +MILK OF MA400 MG/5 M PO
[2019-09-23] MEDS ORDERED: HYDROCODON-ACE1 EA10 PO (10:16)
[2019-09-23] MEDS ORDERED: [UNRECOGNIZED DRUG - OTHER] PO (18:24)
--- NOTE | 2019-09-24 14:34 | PATH ---
[facility] [address] [place], [place] [address] Signed SPECIMEN(S): A PRODUCTS OF DEBRIDEMENT SPECIMEN SOURCE: A. PRODUCTS OF DEBRIDEMENT CLINICAL HISTORY: Wound infection right breast, status post mastectomy. FINAL PATHOLOGIC DIAGNOSIS: Tissue from right breast, debridement: - Necrotic adipose and fibroadipose tissue. - Acute and chronic inflammation and granulation tissue. - Negative for malignancy. LJA:cml:C2NR MICROSCOPIC EXAMINATION: Histologic sections of all submitted blocks are examined by light microscopy. These findings, together with the gross examination, support the pathologic diagnosis. GROSS DESCRIPTION: The specimen, labeled "MS, A" and "products of debridement" on the requisition, is received in formalin and consists of a 3.2 x 2.4 x 0.7 cm aggregate of soft shannon to red flat tissue. Vp Genetic tissue is submitted in cassette A1. SS (under the direct supervision of a pathologist) The Gross Description was prepared using a voice recognition system. The report was reviewed for accuracy; however, sound-alike word errors, addition and/or deletions may occur. If there is any question about this report, please contact Client Services. PERFORMING LABORATORY: The technical component was performed by [facility], [address] [place] [id number] ([employer]: Teodora Mccabe MD; CLIA# [id number]). [facility] [address] [address] (CLIA# [id number]). Diagnostician: Michael Joy MD Pathologist Electronically Signed 09/24/2019 PATIENT NAME: ARLIN RIOS PATHOLOGY DATE OF : 38 REPORT #: [id number] PHYSICIAN: [facility] PCP: RADHA GOLDSTEIN MD REPORT IS CONFIDENTIAL AND NOT TO BE RELEASED WITHOUT AUTHORIZATION [address] [address] Signed Copies: ~ PATIENT NAME: ARLIN RIOS PATHOLOGY DATE OF : 38 REPORT #: [id number] PHYSICIAN: [facility] PCP: RADHA GOLDSTEIN MD REPORT IS CONFIDENTIAL AND NOT TO BE RELEASED WITHOUT AUTHORIZATION
--- NOTE | 2019-09-27 20:23 | OR ---
[facility] [address] [place], [place] [address] Signed DATE OF OPERATION: 09/23/2019 SURGEON: Sophie Barcenas MD PREOPERATIVE DIAGNOSES: 1. History of right radical mastectomy with axillary dissection for stage III breast cancer, September 03, 2019. 2. Proteus mirabilis wound infection related to inadequate wound care with drains and accumulation of sub flap and axillary fluid. POSTOPERATIVE DIAGNOSES: 1. History of right radical mastectomy with axillary dissection for stage III breast cancer, September 03, 2019. 2. Proteus mirabilis wound infection related to inadequate wound care with drains and accumulation of sub flap and axillary fluid. 3. Gelatinous fibrinopurulent peel of chest wall and flaps; completely viable flaps otherwise. PROCEDURES PERFORMED: 1. Exam under anesthesia. 2. Debridement including scarification with curettage of chest wall and chest wall flaps. Irrigation and debridement of granulation tissue. 3. Replacement of drains. 4. Closure of the chest wall wound (25 cm). ANESTHESIA: General IV (propofol) Yousif Nolen CRNA. INDICATIONS: This 78-year-old white man is a patient of Dr. Radha Acosta and has had over a year of progression of a fungating bleeding right breast mass for which the patient refused any real evaluation. He was noted to have significant aortic stenosis from the distant past but has refused cardiac evaluation for that. The patient became anemic due to the persistent bleeding of his fungating chest wall mass and biopsy in the office setting by me confirmed infiltrating breast cancer. A CT scan does not show distant metastasis, but the tumor was penetrating into the pectoralis muscle. On September 03, 2019, he underwent a radical mastectomy, which included right pectoralis excision and axillary dissection. He had greater than 10 lymph nodes positive for metastatic disease and some possible trace of tumors still on the chest wall itself, Electronically Signed By: SOPHIE BARCENAS MD 09/27/192022 PATIENT NAME: ARLIN RIOS OPERATIVE REPORT DATE OF : 38 REPORT #: [id number] PHYSICIAN: SOPHIE BARCENAS MD PCP: RADHA ACOSTA MD REPORT IS CONFIDENTIAL AND NOT TO BE RELEASED WITHOUT AUTHORIZATION [facility] [address] [place], [place] [address] Signed though grossly that was not the case. The patient lives in a compromised living arrangement with his daughter. The patient has refused any senior care stay and as well as visiting nursing personnel and essentially lives in [facility]. He has been noncompliant with bathing and difficulty with his drains has been notable. I saw him in the past week for evaluation of his drains, which were not maintained on suction and which showed fluid which was quite clearly infected. Gram stain and cultures demonstrated Proteus mirabilis. Separation the midportion of the flaps was noted which made for inadequate close drainage with suction as well. He was begun on Augmentin antibiotic, which was found to be good for coverage of his offending infectious organism. One of the drains was able to be removed. The other drain is draining more reasonably clear fluid. The patient is not progressing have home and evaluation by Dr. Acosta's yesterday was undertaken and given his wound problems I admitted him directly to the hospital yesterday for further evaluation and care. The superior and inferior flaps were completely viable. There is a space between the upper flap and the chest wall as well as possibly the axilla which is not well apposed. He is now to undergo exam under anesthesia, debridement, and additional closure of the wound as appropriate. The possibility of a wound VAC as a wound management approach has been considered. However, this could be was quite problematic socially speaking and therefore it would be used as a last resort under the circumstances. FINDINGS: IV general anesthesia was induced with propofol infusional technique. He did not require intubation. This was completely adequate for the needs at hand. He is already known to have a limited mobility of his right upper extremity (abduction quite limited). As regard to the wound, there was no purulent collection, but there was a gelatinous cavity covering the chest wall and the flaps and extending to the axilla. This was debrided with a Banjo curette down to vigorously viable tissue. The remaining drain had been removed and two additional drains were placed, one beneath the flaps and the other over the chest wall extending to the axilla. The wound was completely opened and the suture line excised as well. The skin was then closed with a running 2-0 nylon suture providing an airtight seal and good suction is maintained at this point. Both drains are well positioned and applying good suction at this point. DESCRIPTION OF PROCEDURE: The patient was brought to the operating room and in the reverse Trendelenburg position the right chest wall was photographed and then prepared with a DuraPrep type solution. The drain was prepped in. Sterile draping was then applied. The mid to lateral aspect Electronically Signed By: SOPHIE BARCENAS MD 09/27/192022 PATIENT NAME: ARLIN RIOS OPERATIVE REPORT DATE OF : 38 REPORT #: [id number] PHYSICIAN: SOPHIE BARCENAS MD PCP: RADHA ACOSTA MD REPORT IS CONFIDENTIAL AND NOT TO BE RELEASED WITHOUT AUTHORIZATION [facility] [address], [place] [address] Signed where separation of the flaps was noted was interrogated first. Application of a Banjo curette was undertaken and extended beneath the superior and inferior flaps. A gelatinous granulating surface was noted quite typical of those cavities that have had accumulation of fluid without apposition to the chest wall. The suture in line medially was ultimately removed and skin debrided. Complete opening of the wound was noted. There was some fusion of flap superiorly and inferiorly to chest wall, but much of it remained open with the gelatinous granulation type tissue. All surfaces were vigorously debrided with a Banjo curette and the mucoid material retrieved as products of debridement. Gram stain and cultures were obtained as well, of course. IrriSept anti-infectious irrigant fluid was applied vigorously throughout the cavity. The drain that remained was removed in the exit site cauterized and left open. Two separate incisions were made, one laterally and one in the mid thorax inferiorly allowing for passage of new 7 mm Huey drains. The skin was then closed with a running 2-0 nylon suture to provide an airtight closure. Irrigation was undertaken of the skin and the drains had been secured to the skin with nylon suture. The drains were attached to bulb suction and suction was made maintained without problem. A silver sponge dressing was applied to the wound itself. BLOOD LOSS: Less than 25 mL in aggregate. COUNTS: Sponge, needle, and instrument counts reported as correct x3. MD MARY Valencia/JESSICA /[id number] cc: Radha Acosta MD Copies: RADHA ACOSAT MD Electronically Signed By: SOPHIE BARCENAS MD 09/27/192022 PATIENT NAME: ARLIN RIOS OPERATIVE REPORT DATE OF : 38 REPORT #: [id number] PHYSICIAN: SOPHIE BARCENAS MD PCP: RADHA ACOSTA MD REPORT IS CONFIDENTIAL AND NOT TO BE RELEASED WITHOUT AUTHORIZATION [address] [address] Signed ~ Electronically Signed By: SOPHIE BARCENAS MD 09/27/192022 PATIENT NAME: ARLIN RIOS OPERATIVE REPORT DATE OF : 38 REPORT #: [id number] PHYSICIAN: SOPHIE BARCENAS MD PCP: RADHA ACOSTA MD REPORT IS CONFIDENTIAL AND NOT TO BE RELEASED WITHOUT AUTHORIZATION
--- NOTE | 2019-09-27 20:23 | HP ---
[facility] [address] [place], [place] [address] Signed ADMISSION DATE: 09/22/2019 REASON FOR ADMISSION: Proteus mirabilis wound infection status post right radical mastectomy. HISTORY OF PRESENT ILLNESS: This 78-year-old white man is a patient of Dr. Radha Acosta and had a fungating bleeding extensive right breast cancer undergoing right radical mastectomy by me on September 03, 2019. His final pathology showed at least 10 lymph nodes positive for metastatic disease and questionably positive deep margin despite excision of the right pectoral muscle. The patient is cared for in his own home by his daughter, who is limited in her ability to do so. Indeed, the patient basically lives in [facility]. Two drains were placed at the time of his original operation, one of which was able to be removed in the office setting. The patient was quite unkept at the time of his evaluation with very foul odor generally speaking due to inability and essentially unwillingness to bathe at home. His daughter who tries her best was unable to coax him to do this either nor be very mobile. Some separation of his wound in the midportion without associated ischemia or necrosis was noted and cultures were obtained of the fluid within the wound, which showed Proteus mirabilis, which was essentially pansensitive to my surprise. The patient had been placed empirically on Augmentin. We had hoped to see the patient back in the office sooner today, but the patient's daughter mobilized him to be seen at the office of Dr. Acosta, who I corresponded with prior to the visit. Dr. Acosta noted that there is some separation of the wound in the midportion, only a few centimeters at most, but the drainage fluid in the Huey drain was not maintaining suction and had not been emptied routinely by family members. Upon phone discussion with him, I recommended that I directly admit him to the hospital for further evaluation and care, likely to include operative irrigation and debridement of the wound as needed. The patient since his admission has undergone lab studies, which were erroneously abnormal due to being drawn above his infusing IV and therefore no lab studies are Electronically Signed By: SOPHIE BARCENAS MD 09/27/192022 PATIENT NAME: ARLIN RIOS HISTORY AND PHYSICAL DATE OF : 38 REPORT #: [id number] PHYSICIAN: SOPHIE BARCENAS MD PCP: RADHA ACOSTA MD REPORT IS CONFIDENTIAL AND NOT TO BE RELEASED WITHOUT AUTHORIZATION [facility] [address] [place], [place] [address] Signed available at the moment. This does not include a CBC, which was reasonably obtained with a white count of 11.2, hematocrit of 32.6, a platelet count of 673,000. Chem profile was quite markedly abnormal and likely related to erroneous blood draw as previously noted. A repeat is pending. At present, the patient denies any pain and denies any fever or chills. Notably, however, he is not highly communicative, though he does understand what is said. He is hard of hearing. REVIEW OF SYSTEMS: He has had no fever or chills. His mobility has been impaired. He uses a wheelchair for convenience, so he is able to ambulate a few steps. PHYSICAL EXAMINATION: GENERAL: A white haired man, who looks far older than his age of 78 years. He is alert and oriented and not systemically toxic that I can tell. NECK: Trachea is midline. CHEST: Shows normal respiratory excursion. Right chest wall does show some mild edema, but no erythema. The flaps appear to be quite viable. There is no sign of necrosis of the flaps. Sutures that were placed in the office setting on the medial aspect are intact. A small area of separation of the wound in the midportion about 2 cm in length is noted. There appears to be reasonably clear fluid within the remaining drain, which goes to the axillary area. There is no sign of fluid accumulation in the axilla. ABDOMEN: Obese, but soft. EXTREMITIES: Show no clubbing, cyanosis, or edema. ASSESSMENT: The patient's wound appears better now than it did in the office setting a few days ago. Still there is a separation of the wound flap and egress of somewhat turbid fluid from the central portion. He is admitted and has been placed on antibiotics (Levaquin) and may be best served by a trip to the operating room if under sedation or anesthesia allowing for Banjo curette of the depth of the wound to ascertain the depth of separation and replace a drain and close wound as appropriate. It is heartening to know that there is no flap necrosis or anything of that sort. I think that he will promptly heal this problem up. A bigger consideration in his case will be disposition. He has been in the care home locally and refuses ever to go back to it. Arrangements for home health assistance may be of benefit to the patient and his daughter, who tries her best to take care of him, but who is somewhat limited in her own abilities in that regard. Electronically Signed By: SOPHIE BARCENAS MD 09/27/192022 PATIENT NAME: ARLIN RIOS HISTORY AND PHYSICAL DATE OF : 38 REPORT #: [id number] PHYSICIAN: SOPHIE BARCENAS MD PCP: RADHA ACOSTA MD REPORT IS CONFIDENTIAL AND NOT TO BE RELEASED WITHOUT AUTHORIZATION [facility] [address] [place] [address] Signed I discussed all this with the patient and he understands and agrees. We will schedule this for tomorrow. In the meantime, he is being given aggressive fluid resuscitation as he was somewhat dehydrated clinically. He will be able to eat after operation and of course tonight has been given food, which he has tolerated. MD MARY Valencia/MODL /[id number] cc: Radha Acosta MD Copies: RADHA ACOSTA MD ~ Electronically Signed By: SOPHIE BARCENAS MD 09/27/192022 PATIENT NAME: ARLIN RIOS HISTORY AND PHYSICAL DATE OF : 38 REPORT #: [id number] PHYSICIAN: SOPHIE BARCENAS MD PCP: RADHA ACOSTA MD REPORT IS CONFIDENTIAL AND NOT TO BE RELEASED WITHOUT AUTHORIZATION
--- NOTE | 2019-10-03 12:03 | OR ---
[facility] [address] [place], [place] [address] Signed DATE OF OPERATION: 10/01/2019 SURGEON: Sophie Barcenas MD PREOPERATIVE DIAGNOSES: 1. History of right radical mastectomy for advanced breast cancer, September 03, 2019. 2. Infection of the wound related to inadequate drain care at home with Proteus mirabilis. 3. Status post incision, drainage, debridement, re-application of wound drains and closure of wound on September 23, 2019. 4. Finding of methicillin-resistant Staphylococcus aureus infection and dehiscence of lateral aspect of wound closure. POSTOPERATIVE DIAGNOSES: 1. History of right radical mastectomy for advanced breast cancer, September 03, 2019. 2. Infection of the wound related to inadequate drain care at home with Proteus mirabilis. 3. Status post incision, drainage, debridement, re-application of wound drains and closure of wound on September 23, 2019. 4. Finding of methicillin-resistant Staphylococcus aureus infection and dehiscence of lateral aspect of wound closure. 5. Incomplete healing of the wound; residual axillary space and superior and inferior flap space laterally with fusion medially. PROCEDURES: 1. Exam under anesthesia. 2. Curettage debridement of remaining open wound space. 3. Application of negative wound pressure therapy sponge (Knutson and Nephew device). ANESTHESIA: IV sedation with monitored anesthesia care; Sophie Tracy CRNA. INDICATION: This 78-year-old white man has been hospitalized since September 22, 2019, having been admitted for to deal with failure of wound healing following a radical mastectomy for stage III breast cancer on the right side. He had essentially no adequate wound care in his home environment due to squalor and inattention by patient and his daughter, overhead crane inspector regarding wound care. An accumulation of fluid was noted, which was cultured and found to have Proteus mirabilis. He was taken back to the operating room for debridement of the wound, additional closure and placement of different drains on Electronically Signed By: SOPHIE BARCENAS MD 10/03/19 1203 PATIENT NAME: ARLIN RIOS OPERATIVE REPORT DATE OF : 38 REPORT #: [id number] PHYSICIAN: SOPHIE BARCENAS MD PCP: RADHA ACOSTA MD REPORT IS CONFIDENTIAL AND NOT TO BE RELEASED WITHOUT AUTHORIZATION [facility] [address] [place] [id number] Signed September 23, 2019. Cultures at that time showed methicillin-resistant Staph aureus (MRSA). His wound has been healing well with suction devices allowing for apposition of the flaps to the chest wall after debridement. However, in the past few days, anticipating transfer to extended care facility of which he previously resisted midportion of the wound has shown some dehiscence and lack of suction on the devices. He is now to return to the operating room for debridement and application of wound VAC device to the extent necessary for the wound space. He understands the risks of bleeding, infection, and other unforeseen complications related to this and wished to proceed. FINDINGS: In the medial aspect of the previous large flaps, good apposition of soft tissue to the chest wall was accomplished. Laterally, however, including that area of the axilla, a slick gelatinous noninfected-appearing space remained, but suction could certainly not be applied due to separation of the skin. The flaps were completely viable otherwise. Debridement of the slick remaining cavity in the lateral aspect and in the inferior flap was accomplished and Gram stain and cultures obtained. The drains were removed completely. A black sponge was applied to the depths of the axilla and in the superior and to greater extent at the inferior aspect of the flaps that remained unopposed of the chest wall. It is my intention to change this device within four days, as I believe the contraction of the space will allow for ultimate healing without too much further problem. DESCRIPTION OF PROCEDURE: The patient was brought to the operating room in supine position, given intravenous sedation by the cover creaser. He is known to have a difficult airway. Photographs were taken. Two drains remained, 7 mm Huey type were removed. Sutures removed laterally from the wound. Those medially were noted to be densely adherent and there appeared to be no mobility of the flaps over the chest wall in the medial half of the wound. The chest wall was then prepared with a Betadine-based solution and draped sterilely. Interrogation of the space was undertaken elevating the flap superiorly and inferiorly in the lateral aspect. Excellent fusion was noted in the medial half, but laterally still remained a gelatinous space and certainly likely with some lymphatic fluid drainage from the axillary area itself. These areas were then curetted with Banjo curettes vigorously and products of debridement sent for pathology. Gram stain and cultures were obtained at the outset. A smaller-sized wound VAC device was cut to appropriate configuration and secured under the flaps inferiorly and superiorly and into the depths of the axilla laterally. The adherent dressing was then applied and 120 mm continuous pressure applied with the Knutson and Nephew negative wound pressure therapy device. Good compression and suctioning was Electronically Signed By: SOPHIE BARCENAS MD 10/03/19 1203 PATIENT NAME: ARLIN RIOS OPERATIVE REPORT DATE OF : 38 REPORT #: [id number] PHYSICIAN: SOPHIE BARCENAS MD PCP: RADHA ACOSTA MD REPORT IS CONFIDENTIAL AND NOT TO BE RELEASED WITHOUT AUTHORIZATION [facility] [address] [place], [place] [address] [address] Signed noted. An additional adherent dressing was applied as there was a weak signal, possibly related to the previous drain sites. The patient was ultimately transferred to the recovery room in good condition having suffered no complications. MD MARY Valecnia/JESSICA /[id number] cc: Radha Acosta MD Copies: RADHA ACOSTA MD ~ Electronically Signed By: SOPHIE BARCENAS MD 10/03/19 1203 PATIENT NAME: ARLIN RIOS OPERATIVE REPORT DATE OF : 38 REPORT #: [id number] PHYSICIAN: SOPHIE BARCENAS MD PCP: RADHA ACOSTA MD REPORT IS CONFIDENTIAL AND NOT TO BE RELEASED WITHOUT AUTHORIZATION
--- NOTE | 2019-10-03 13:10 | EKG ---
[facility] [place] [facility] [address] [facility] [place], [place] [address] Signed Accelerated Junctional rhythm with retrograde conduction Low voltage QRS Cannot rule out Anteroseptal infarct , age undetermined Abnormal ECG When compared with ECG of 01-SEP-2019 15:07, Significant changes have occurred Confirmed by KELSEY BROWNLEE MD ([id number]) on 10/03/2019 1:10:38 PM Electronically Signed By: KELSEY BROWNLEE MD 10/03/19 1310 PATIENT NAME: ARLIN RIOS Electrocardiogram DATE OF : 38 PHYSICIAN: KELSEY BROWNLEE MD REPORT #: [id number] REPORT IS CONFIDENTIAL AND NOT TO BE RELEASED WITHOUT AUTHORIZATION
--- NOTE | 2019-10-05 10:29 | PATH ---
[facility] [address], [place] [address] Signed SPECIMEN(S): A RIGHT CHEST WALL, DEBRIDEMENT SPECIMEN SOURCE: A. RIGHT CHEST WALL, DEBRIDEMENT CLINICAL HISTORY: Infected R chest surgical wound. FINAL PATHOLOGIC DIAGNOSIS: Chest wall, right, debridement: - Fragments of partially necrotic fibrovascular connective tissue with acute and chronic inflammation, giant cell reaction and reactive changes. - No carcinoma identified. - See Comment. COMMENT: The specimen was entirely submitted for histologic examination. Correlation with microbiological studies is recommended. NAL:cml:C2NR MICROSCOPIC EXAMINATION: Histologic sections of all submitted blocks are examined by light microscopy. These findings, together with the gross examination, support the pathologic diagnosis. GROSS DESCRIPTION: The specimen, labeled "MS, right chest wall debridement," is received in formalin and consists of several pieces of irregular shaped pink-red, congested fibromembranous tissue fragments that aggregate measure 3.5 x 1.4 x 0.5 cm. Radiological Metallurgist sections are submitted in cassette (A1). JS (under the direct supervision of a pathologist) The remaining of the tissue is submitted in single cassette (A2) per Dr. Colunga request. JS (under the direct supervision of a pathologist) The Gross Description was prepared using a voice recognition system. The report was reviewed for accuracy; however, sound-alike word errors, addition and/or deletions may occur. If there is any question about this report, please contact Client Services. PERFORMING LABORATORY: PATIENT NAME: ARLIN RIOS PATHOLOGY DATE OF : 38 REPORT #: [id number] PHYSICIAN: MO KOCH PCP: RADHA GOLDSTEIN MD REPORT IS CONFIDENTIAL AND NOT TO BE RELEASED WITHOUT AUTHORIZATION [facility] [address] [place], [place] [address] Signed The technical component was performed by [employer] [place] [address] (Financial Aid Coordinator: Teodora Mccabe MD; CLIA# [id number]). Professional interpretation was performed by [facility], [address] [address] (CLIA# [id number]). Diagnostician: Marquita Colunga MD Pathologist Electronically Signed 10/05/2019 Copies: ~ PATIENT NAME: ARLIN RIOS PATHOLOGY DATE OF : 38 REPORT #: [id number] PHYSICIAN: MO KOCH PCP: RADHA GOLDSTEIN MD REPORT IS CONFIDENTIAL AND NOT TO BE RELEASED WITHOUT AUTHORIZATION
--- NOTE | 2019-10-05 17:50 | OR ---
[facility] [address] [place], [place] [address] Signed DATE OF OPERATION: 10/05/2019 SURGEON: Sophie Barcenas MD PREOPERATIVE DIAGNOSES: 1. Right stage III breast cancer, status post right radical mastectomy. 2. Delayed wound healing with wound infection (resolving). 3. History of debridement, wound VAC application 4 days ago. POSTOPERATIVE DIAGNOSES: 1. Right stage III breast cancer, status post right radical mastectomy. 2. Delayed wound healing with wound infection (resolving). 3. History of debridement, wound VAC application 4 days ago. 4. Wound granulation improved. PROCEDURES: 1. Examination under anesthesia. 2. Curettage and debridement of axillary and chest wall wound. 3. Re-application of wound VAC device (Knutson and Nephew type). ANESTHESIA: Monitored anesthesia care. Sophie Martins CRNA. INDICATION: This 78-year-old white man underwent right radical mastectomy for advanced breast cancer penetrated into the pectoralis muscle. He had multiple lymph nodes positive for metastatic disease. No known distant metastases. He had essentially no self-wound care postoperatively resulting in flap elevation without necrosis and subsequent infection with Proteus mirabilis and subsequently MRSA. Approximately four days ago, he underwent curettage and debridement as well as application of a wound VAC, which included beneath the flaps in the central portion of the chest wall wound. He is now to undergo exam under anesthesia, removal of the wound VAC sponge and re-application of wound VAC and debridement as necessary. He understands the risks of bleeding, infection, and so forth and wished to proceed. FINDINGS: Impressive improvement of wound granulation was noted. In the deep axilla, there was still some slick lymph rich fluid noted, but the flaps had largely fused to the chest wall in the central portion (medial portion already fused). Curettage and debridement were undertaken and cultures obtained and re-application of the wound VAC in a smaller Electronically Signed By: SOPHIE BARCENAS MD 10/05/19 8706 PATIENT NAME: ARLIN RIOS OPERATIVE REPORT DATE OF : 38 REPORT #: [id number] PHYSICIAN: SOPHIE BARCENAS MD PCP: RADHA ACOSTA MD REPORT IS CONFIDENTIAL AND NOT TO BE RELEASED WITHOUT AUTHORIZATION [facility] [address] [place], [place] [address] Signed amount Dominantly to the axilla and partially to the chest wall. A good seal with the suction device was noted without sign of leak. DESCRIPTION OF PROCEDURE: The patient was brought to the operating room after being pretreated in preoperative anesthesia area with Lasix 20 mg and albuterol nebulizer and did have some congestion. He was given intravenous sedation with propofol infusional technique with full cardiopulmonary monitoring by the blending machine operator. Once relaxed, unable to tolerate the removal of the adhesive. This was undertaken. The photographs were taken as well. The wound VAC sponge was carefully removed showing impressive granulation in the base of the wound and in the overlying flaps. Extraction of the sponge did absolutely require sedation given its location and extent. Photographs were taken of the granulating soft tissue in the wound. The axilla was examined and found to have a bit of a slick surface still. This area was curettage with a Banjo curette and products of debridement sent for pathology. Cultures were obtained for both aerobes and anaerobes. A Knutson and Nephew wound VAC sponge device was cut to the appropriate configuration and placed in the depths of the axilla and over the chest wall. At this time, not requiring placement under the flaps proper. The adhesive dressing was then applied over that. A small cut made in the adhesive over the sponge and the suction device applied over it. 120 mm wound VAC sponge pressure was applied, and there was seen to be no evidence of ongoing leak. He was ultimately transferred to the recovery room in good condition having suffered no complication. MD MARY Valencia/SITAL /[id number] cc: aRdha Acosta MD Copies: RADHA ACOSTA MD Electronically Signed By: SOPHIE BARCENAS MD 10/05/19 1750 PATIENT NAME: ARLIN RIOS OPERATIVE REPORT DATE OF : 38 REPORT #: [id number] PHYSICIAN: SOPHIE BARCENAS MD PCP: RADHA ACOSTA MD REPORT IS CONFIDENTIAL AND NOT TO BE RELEASED WITHOUT AUTHORIZATION [address] [place] [address] Signed ~ Electronically Signed By: SOPHIE BARCENAS MD 10/05/19 1750 PATIENT NAME: ARLIN RIOS OPERATIVE REPORT DATE OF : 38 REPORT #: [id number] PHYSICIAN: SOPHIE BARCENAS MD PCP: RADHA ACOSTA MD REPORT IS CONFIDENTIAL AND NOT TO BE RELEASED WITHOUT AUTHORIZATION
--- NOTE | 2019-10-07 11:07 | PATH ---
[facility] [address] [facility] [place], [place] [address] Signed SPECIMEN(S): A RIGHT CHEST DEBRIDEMENT SPECIMEN SOURCE: A. RIGHT CHEST DEBRIDEMENT CLINICAL HISTORY: History of breast CA, right. Wound infection. FINAL PATHOLOGIC DIAGNOSIS: Chest wall, right, debridement: - Fragments of fibrovascular connective tissue with acute and chronic inflammation and reactive changes. - Fragments of fibrin and necrotic tissue. - No carcinoma identified. - See Comment. COMMENT: The specimen was entirely submitted for histologic examination. Correlation with microbiological studies is recommended. NAL:glc:C2NR MICROSCOPIC EXAMINATION: Histologic sections of all submitted blocks are examined by light microscopy. These findings, together with the gross examination, support the pathologic diagnosis. GROSS DESCRIPTION: The specimen, labeled "MS, products of debridement, right," per requisition, is received in formalin and consists of multiple shannon soft tissue fragments, measuring 2.3 x 2.0 x 0.3 cm in aggregate. The specimen is filtered and entirely submitted in cassette (A1). AT (under the direct supervision of a pathologist) The Gross Description was prepared using a voice recognition system. The report was reviewed for accuracy; however, sound-alike word errors, addition and/or deletions may occur. If there is any question about this report, please contact Client Services. PERFORMING LABORATORY: The technical component was performed by [facility], [address] [place] [address] (Rest Room Maid: Teodora Mccabe MD; CLIA# [id number]). Professional interpretation was performed by PATIENT NAME: ARLIN RIOS PATHOLOGY DATE OF : 38 REPORT #: [id number] PHYSICIAN: [facility] PCP: RADHA GOLDSTEIN MD REPORT IS CONFIDENTIAL AND NOT TO BE RELEASED WITHOUT AUTHORIZATION [facility] [address] [place], [place] [address] Signed [facility], [facility], [address] [facility] [address], [place] [address] (CLIA# [id number]). Diagnostician: Marquita Colunga MD Pathologist Electronically Signed 10/07/2019 Copies: ~ PATIENT NAME: ARLIN RIOS PATHOLOGY DATE OF : 38 REPORT #: [id number] PHYSICIAN: [facility] PCP: RADHA GOLDSTEIN MD REPORT IS CONFIDENTIAL AND NOT TO BE RELEASED WITHOUT AUTHORIZATION
== END 2019-10-08 11:27 | DRG 856 ==
LOC: MS 16:53
PROVIDERS: ADMIT Surgery
PROC: 0JB60ZZ Excision of Chest Subcutaneous Tissue and Fascia, Open Approach (ICD-10-PCS; principal; 2019-10-05 12:15)
DX: T81.49XA Infection following a procedure, other surgical site, initial encounter (principal); J18.9 Pneumonia, unspecified organism; G93.41 Metabolic encephalopathy; T81.31XA Disruption of external operation (surgical) wound, not elsewhere classified, initial encounter; C77.9 Secondary and unspecified malignant neoplasm of lymph node, unspecified; B95.62 Methicillin resistant Staphylococcus aureus infection as the cause of diseases classified elsewhere; G30.9 Alzheimer's disease, unspecified; F02.80 Dementia in other diseases classified elsewhere, unspecified severity, without behavioral disturbance, psychotic disturbance, mood disturbance, and anxiety; I35.0 Nonrheumatic aortic (valve) stenosis; C50.921 Malignant neoplasm of unspecified site of right male breast; F41.9 Anxiety disorder, unspecified; F32.9 Major depressive disorder, single episode, unspecified; E86.0 Dehydration; Z88.8 Allergy status to other drugs, medicaments and biological substances; Z79.899 Other long term (current) drug therapy; Z72.811 Adult antisocial behavior
CPT/HCPCS: 00400; 00404; 36415; 71045; 80048; 80053; 80202; 81001; 82247; 82465; 83615; 83735; 83880; 84100; 84478; 84550; 85025; 87070; 87075; 87077; 87186; 87205; 88304; 93005; 93010; 94640; 94760; 97162; J0692; J1100; J1630; J1644; J1885; J1940; J1956; J2250; J2370; J2405; J2704; J2765; J3010; J3370; J3475; J3480; J7060; J7120; J7121